=== PATIENT | male | born 1930 | race Caucasian/White ===

== ENCOUNTER 2016-09-21 18:29 | Emergency (ER) | payer MEDICARE, MEDICAID ==
[~2016-09-21] VITALS: Ht 167.6 cm; Wt 49.9 kg
[~2016-09-21 18:29] MED LIST: AMLODIPINE BESYL5 MG ORAL; ARICEPT5 MG ORAL; AUGMENTIN250 MG/51 ORAL; CARVEDILOL12.5 MG ORAL; CRANBERRY405 M1 PO; DEPAKOTE SPRIN125 M1 ORAL; DOCUSATE SODIU100 M2 ORAL; DULCOLAX10 MG RC; MOM30 ML ORAL; MULTIVITAMINS1 EA14 PO; NAMENDA5 MG ORAL; PEPCID20 MG ORAL; POLYVINYL ALCOH15 ML OP; REMERON15 M1 ORAL; TYLENOL325 MG ORAL
[2016-09-21] MEDS ORDERED: ARICEPT10 MG ORAL (18:43)
[2016-09-21] MEDS ORDERED: MULTIVITAMINS1 EAC8 ORAL (18:43)
[2016-09-21] MEDS ORDERED: REMERON15 M1 ORAL (18:43)
[2016-09-21] MEDS ORDERED: ASPIR 8181 MG ORAL (18:43)
[2016-09-21] MEDS ORDERED: BISACODYL10 M1 RC (18:43)
[2016-09-21] MEDS ORDERED: DOCUSATE SODIU100 MG ORAL (18:43)
[2016-09-21] MEDS ORDERED: COREG12.5 MG ORAL (18:43)
[2016-09-21] MEDS ORDERED: MILK OF MA400 MG/51 ORAL (18:43)
[2016-09-21] MEDS ORDERED: FOLIC ACID1 MG ORAL (18:43)
[2016-09-21 19:12] VITALS: BP 124/72
--- NOTE | 2016-09-21 19:42 | Emergency Room Report ---
History of Present Illness General Chief Complaint: Head Injury Source: Medical Record Present Illness HPI 86 y/o male BIB ambulance c/o head injury x 2 hours ago. States he was getting out of bed and hit his head on the bedside table. States he has cut to the back of his head and is on ASA and had local pain from hitting his head. No other symptoms or complaints. Denies any current n/v/f/c/d, abd pain, back pain, neck pain, photophobia, phonophobia, CP, SOB or headache. Allergies: Coded Allergies: No Known Allergies (Verified , 05/23/08) Patient History Past Medical History: see triage record Reviewed Nursing Documentation: PMH: Agreed, PSxH: Agreed Nursing Documentation-PMH Hx Hypertension: Yes Hx COPD: Yes Hx Cancer: No Hx Gastrointestinal Problems: Yes Hx Neurological Problems: Yes - DEMENTIA Hx Dementia: Yes Review of Systems All Other Systems: negative except mentioned in HPI Physical Exam Vital Signs Date Time Temp Pulse Resp B/P Pulse Ox O2 Delivery O2 Flow Rate FiO2 09/21/16 18:32 97.5 74 18 124/72 98 Room Air Sp02 EP Interpretation: reviewed, normal General Appearance: no apparent distress, alert, GCS 15, non-toxic Head: normocephalic, atraumatic Eyes: bilateral eye PERRL, bilateral eye normal inspection ENT: hearing grossly normal, normal pharynx, no angioedema, normal voice Neck: full range of motion, no bony tend, supple/symm/no masses Respiratory: chest non-tender, lungs clear, normal breath sounds Cardiovascular #1: regular rate, rhythm, no edema Musculoskeletal: back normal, gait/station normal, normal range of motion, non- tender Neurologic: alert, responsive, campus interviews intern III-XII nml as tested, motor strength/tone normal, sensory intact Skin: normal color, no rash, warm/dry, well hydrated, abrasions - posterior scalp Medical Decision Making PA Attestation Dr. Rivera is my supervising physician with whom patient management has been discussed with. Diagnostic Impression: Primary Impression: Acute head injury Qualified Codes: S09.90XA - Unspecified injury of head, initial encounter Additional Impression: Abrasion of head Qualified Codes: S00.91XA - Abrasion of unspecified part of head, initial encounter ER Course Pt. presents to the ED c/o head injury Ddx considered but are not limited to CVA, intracranial hemorrhage, concussion, skull fracture, spinal fracture Vital signs: are WNL, pt. is afebrile H&PE are most consistent with head injury ORDERS: CT Head w/o contrast ED INTERVENTIONS: none required at this time. DISCHARGE: At this time pt. is stable for d/c to home. Will provide printed patient care instructions, and any necessary prescriptions. Care plan and follow up instructions have been discussed with the patient prior to discharge. CT/MRI/US Diagnostic Results CT/MRI/US Diagnostic Results : Imaging Test Ordered: CT head w/o contrast Impression No ICH, mass effect or edema. No evidence of acute cortical stroke. Periventricular small vessel ischemic change. Global volume loss. Visualized sinuses and mastoid air cells are clear. No skull fracture. Last Vital Signs Date Time Temp Pulse Resp B/P Pulse Ox O2 Delivery O2 Flow Rate FiO2 09/21/16 18:32 97.5 74 18 124/72 98 Room Air Disposition: ASSISTED LIVING Condition: Stable Referrals: NON PHYSICIAN (PCP) Patient Instructions: HEAD INJURY with [facility] (Adult) DENISE PARKS Sep 21, 2016 19:42
[2016-09-21 20:37] VITALS: BP 146/84
[2016-09-21 21:20] VITALS: BP 134/89
[2016-09-21 21:39] VITALS: BP 146/84
--- NOTE | 2016-09-23 08:52 | Diagnostic Imaging Report ---
Indication: Headache Technique: Contiguous 5 mm thick transaxial imaging of the head obtained in a Siemens Sensation [address] scanner. Soft tissue and bone windows generated. Total Dose length Product (DLP): [address] Dose Index Volume (CTDIvol): 70.38 mGy Comparison: 11/04/13 Findings: There is moderate prominence of the ventricles, basal cisterns, and cerebral sulci consistent with atrophy. Moderate, nonspecific, white matter hypoattenuation is noted throughout the brain consistent with chronic small vessel disease. There is no midline shift, edema, acute hemorrhage, mass effect, or abnormal extra-axial fluid collections. Bones and extra osseous soft tissues are unremarkable. Impression: No acute intracranial bleed, mass effect or edema. Moderate atrophy of the brain. Evidence of chronic small vessel disease involving white matter tracts. [facility] has communicated the preliminary results to the Emergency Department. Their findings are largely concordant with this report. The CT scanner at [facility] is accredited by the [employer] and the scans are performed using dose optimization techniques as appropriate to a performed exam including Automatic Exposure control.
== END 2016-09-21 21:40 | disposition home or self-care (01) ==
LOC: EDBD 18:29 → EDUNIT# 18:29 → EMR 19:12
DX: S09.90XA Unspecified injury of head, initial encounter (principal); S00.91XA Abrasion of unspecified part of head, initial encounter; I10 Essential (primary) hypertension; J44.9 Chronic obstructive pulmonary disease, unspecified; F03.90 Unspecified dementia, unspecified severity, without behavioral disturbance, psychotic disturbance, mood disturbance, and anxiety; W22.8XXA Striking against or struck by other objects, initial encounter; Y93.9 Activity, unspecified; Y92.9 Unspecified place or not applicable
CPT/HCPCS: 70450; 99283

== ENCOUNTER 2016-11-26 12:47 | Inpatient (IN) | payer MEDICARE, MEDICAID ==
[~2016-11-26] VITALS: Ht 167.6 cm; Wt 59.0 kg
[~2016-11-26 12:47] MED LIST changes: +ARICEPT10 MG ORAL; +ASPIR 8181 MG ORAL; +BISACODYL10 M1 RC; +COREG12.5 MG ORAL; +DOCUSATE SODIU100 MG ORAL; +FOLIC ACID1 MG ORAL; +MILK OF MA400 MG/51 ORAL; +MULTIVITAMINS1 EAC8 ORAL
[2016-11-26 13:34] VITALS: BP 160/80
[2016-11-26 13:35] VITALS: BP 219/87
[2016-11-26 13:47] LABS: BASOPHILS % (AUTO) 0.3 % (0.0-2.0); LYMPHOCYTES % (AUTO) 20.4 % (20.0-45.0); MEAN CORPUSCULAR HEMOGLOBIN 29.1 PG (27.0-31.0); MEAN CORPUSCULAR HGB CONC 30.6 G/DL (32.0-36.0); MEAN CORPUSCULAR VOLUME 95 FL (80-99); MEAN PLATELET VOLUME 7.4 FL (6.5-10.1); MONOCYTES % (AUTO) 6.1 % (1.0-10.0); NEUTROPHILS % (AUTO) 69.2 % (45.0-75.0); PLATELET COUNT 170 K/UL (150-450); RED BLOOD COUNT 4.09 M/UL (4.70-6.10); RED CELL DISTRIBUTION WIDTH 13.6 % (11.6-14.8); WHITE BLOOD COUNT 8.3 K/UL (4.8-10.8)
[2016-11-26 13:59] LABS: ALANINE AMINOTRANSFERASE 19 U/L (3-41); ALBUMIN/GLOBULIN RATIO 0.6 (1.0-2.7); ASPARTATE AMINO TRANSFERASE 27 U/L (5-40); CALCIUM 9.1 mg/dL (8.6-10.2); CARBON DIOXIDE 28 mEQ/L (20-30); CHLORIDE 124 mEQ/L (98-107); CREATININE 1.9 mg/dL (0.7-1.2); HEMOLYSIS 6; POTASSIUM 4.1 mEQ/L (3.4-4.9); TOTAL PROTEIN 7.7 g/dL (6.6-8.7)
[2016-11-26 14:05] LABS: ANION GAP 8 (5-15); SODIUM 160 mEQ/L (135-145)
--- NOTE | 2016-11-26 14:18 | Emergency Room Report ---
History of Present Illness General Chief Complaint: Abnormal Labs Source: Medical Record, EMS Present Illness HPI This [facility] from [facility] facility. Apparently he was undergoing routine lab work and found to have abnormal labs. This included an elevated BUN and creatinine and an elevated sodium. Patient has a history of failure to thrive, dementia depression. Apparently he also has had poor oral intake the past few days despite encouragement. Allergies: Coded Allergies: No Known Allergies (Verified , 05/23/08) Patient History Past Medical History: see triage record, old chart reviewed, GERD, dementia, other - FTT Social History: Denies: alcohol use, drug use, smoking Reviewed Nursing Documentation: PMH: Agreed, PSxH: Agreed Nursing Documentation-PMH Hx Cardiac Problems: No Hx Hypertension: Yes Hx Pacemaker: No Hx Asthma: No Hx COPD: No Hx Diabetes: No Hx Cancer: No Hx Gastrointestinal Problems: Yes - gi reflux Hx Dialysis: No History Of Psychiatric Problem: Yes - dementia Hx Neurological Problems: No Hx Dementia: Yes Hx Seizures: No Review of Systems All Other Systems: limited Physical Exam Vital Signs Date Time Temp Pulse Resp B/P Pulse Ox O2 Delivery O2 Flow Rate FiO2 11/26/16 12:50 97.9 67 16 123/54 98 Room Air Sp02 EP Interpretation: reviewed, normal General Appearance: no apparent distress, alert, GCS 15, non-toxic Head: normocephalic, atraumatic Eyes: bilateral eye PERRL, bilateral eye normal inspection ENT: hearing grossly normal, normal pharynx, no angioedema, normal voice Neck: supple/symm/no masses Respiratory: chest non-tender, lungs clear, normal breath sounds, no respiratory distress, no retraction, no accessory muscle use Cardiovascular #1: regular rate, rhythm, no edema, systolic murmur Gastrointestinal: normal bowel sounds, non tender, soft, non-distended, no guarding, no rebound Rectal: deferred Musculoskeletal: normal range of motion Neurologic: alert, responsive, other - Near baseline. Non-focal. Unable to cooperate with full exam. Skin: warm/dry, other - See RN skin exam for details of decubitus ulcers. Medical Decision Making Diagnostic Impression: Primary Impression: Hypernatremia Additional Impression: Acute renal failure ER Course This patient presents with failure to thrive. Patient is found to be hypernatremic and has acute renal failure. Likely this is related to dehydration secondary to poor oral intake. Patient was given IV hydration. The patient is admitted for further evaluation of failure to thrive. Patient is admitted to telemetry because of his hypernatremia and acute renal failure. Labs Test 11/26/16 13:30 11/26/16 14:10 White Blood Count 8.3 K/UL (4.8-10.8) Red Blood Count 4.09 M/UL (4.70-6.10) Hemoglobin 11.9 G/DL (14.2-18.0) Hematocrit 38.8 % (42.0-52.0) Mean Corpuscular Volume 95 FL (80-99) Mean Corpuscular Hemoglobin 29.1 PG (27.0-31.0) Mean Corpuscular Hemoglobin Concent 30.6 G/DL (32.0-36.0) Red Cell Distribution Width 13.6 % (11.6-14.8) Platelet Count 170 K/UL (150-450) Mean Platelet Volume 7.4 FL (6.5-10.1) Neutrophils (%) (Auto) 69.2 % (45.0-75.0) Lymphocytes (%) (Auto) 20.4 % (20.0-45.0) Monocytes (%) (Auto) 6.1 % (1.0-10.0) Eosinophils (%) (Auto) 4.0 % (0.0-3.0) Basophils (%) (Auto) 0.3 % (0.0-2.0) Sodium Level 160 mEQ/L (135-145) Potassium Level 4.1 mEQ/L (3.4-4.9) Chloride Level 124 mEQ/L (98-107) Carbon Dioxide Level 28 mEQ/L (20-30) Anion Gap 8 (5-15) Blood Urea Nitrogen 41 mg/dL (7-23) Creatinine 1.9 mg/dL (0.7-1.2) Estimat Glomerular Filtration Rate mL/min (>60) Glucose Level 89 mg/dL (74-106) Calcium Level 9.1 mg/dL (8.6-10.2) Total Bilirubin < 0.2 mg/dL (0.0-1.2) Aspartate Amino Transf (AST/SGOT) 27 U/L (5-40) Alanine Aminotransferase (ALT/SGPT) 19 U/L (3-41) Alkaline Phosphatase 76 U/L (40-129) Total Protein 7.7 g/dL (6.6-8.7) Albumin 3.0 g/dL (3.5-5.2) Globulin 4.7 g/dL Albumin/Globulin Ratio 0.6 (1.0-2.7) Urine Color Pale yellow Urine Appearance Slightly cloudy Urine pH 5 (4.5-8.0) Urine Specific Hallie 1.020 (1.005-1.035) Urine Protein 1+ (NEGATIVE) Urine Glucose (UA) Negative (NEGATIVE) Urine Ketones Negative (NEGATIVE) Urine Occult Blood 5+ (NEGATIVE) Urine Nitrite Negative (NEGATIVE) Urine Bilirubin Negative (NEGATIVE) Urine Urobilinogen Normal MG/DL (0.0-1.0) Urine Leukocyte Esterase 1+ (NEGATIVE) EKG Diagnostic Results Rate: normal Rhythm: NSR ST Segments: no acute changes Rhythm Strip Diag. Results EP Interpretation: yes Rate: 60's Rhythm: NSR, other Other Impression occasional PVC's Last Vital Signs Date Time Temp Pulse Resp B/P Pulse Ox O2 Delivery O2 Flow Rate FiO2 11/26/16 13:34 98.0 82 18 160/80 98 Room Air Disposition: ADMITTED INPATIENT Condition: Serious MONO MOFFETT D.O. Nov 26, 2016 14:18
[2016-11-26 14:26] LABS: APPEARANCE,URINE SLIGHTLY CLOUDY; KETONES,URINE NEGATIVE (NEGATIVE); LEUKOCYTE ESTERASE ,URINE 1+ (NEGATIVE); NITRITE,URINE NEGATIVE (NEGATIVE); PH,URINE 5 (4.5-8.0); PROTEIN,URINE 1+ (NEGATIVE); UROBILINOGEN,URINE NORMAL MG/DL (0.0-1.0)
[2016-11-26 14:51] LABS: BACTERIA,URINE FEW /HPF; MUCUS,URINE OCCASIONAL /LPF (NONE/OCC); SQUAMOUS EPITHELIAL CELL,UR OCCASIONAL /LPF (NONE/OCC)
[2016-11-26] MEDS ORDERED: CEPHALEXIN500 MG ORAL (15:03)
[2016-11-26] MEDS ORDERED: DOXYCYCLINE MO100 MG ORAL (15:03)
[2016-11-26] MEDS ORDERED: ZANTAC150 MG ORAL (15:03)
[2016-11-26] MEDS ORDERED: ACETAMINOPHEN325 M1 ORAL (15:03)
[2016-11-26] MEDS ORDERED: BISACODYL10 M1 RC (18:14)
[2016-11-26] MEDS ORDERED: MILK OF MA400 MG/51 ORAL (18:16)
[2016-11-26 18:42] VITALS: BP 161/91
[2016-11-26] MEDS ORDERED: Fleet's Enema 133ml RECTAL ONE (19:00)
[2016-11-26 20:03] VITALS: BP 165/84
[2016-11-26] MEDS ORDERED: Famotidine 20 MG/ 2ML VIAL IVP SCH (21:00)
--- NOTE | 2016-11-26 21:30 | History and Physical Report ---
DATE OF ADMISSION: 11/26/2016 REASON FOR ADMISSION: Dehydration, hyponatremia, and failure to thrive. HISTORY OF PRESENT ILLNESS: The patient is a long-term patient of mine for more than 15 years, who has been living in a nursing home facility. He has advanced dementia likely underlying schizophrenia or psychosis and has had multiple psychiatric hospitalizations in the past. Recently, he was started on empiric treatment for cellulitis. 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 In the past, he has had dysphagia, but he has tolerated a diet. There is a history of chronic obstructive pulmonary disease. MEDICATIONS: Aricept 10 mg at bedtime, aspirin 81 mg daily, Coreg 12.5 mg b.i.d., DSS 100 mg b.i.d., Dulcolax suppository p.r.n., folic acid 1 mg daily, milk of magnesia p.r.n., multivitamin with minerals 1 daily, Namenda 5 mg b.i.d., Remeron 7.5 mg at bedtime, Tylenol p.r.n., Zantac 300 mg daily, doxycycline 100 mg b.i.d. starting 11/19/2016, and Keflex 500 mg q.i.d., starting 11/19/2016 for cellulitis. SYSTEM REVIEW: The patient is unable. SURGERIES: For ectropion of the eyes. HABITS: He is a smoker quit many years ago. No known drug or alcohol abuse. SOCIAL HISTORY: I do not believe he has any close family contact. PHYSICAL EXAMINATION: GENERAL: The patient is lying in bed, confused, and alert. VITAL SIGNS: Temperature 98.1 degrees, pulse 71, respirations 18, and blood pressure 219/87, and pulse oximetry 98%. Repeat blood pressure 166/78. HEAD, EYES, EARS, NOSE, AND THROAT: Bilateral ectropion. He is edentulous. Oral mucosa is dry. NECK: No adenopathy or thyroid enlargement. LUNGS: Clear. HEART: Rhythm is regular. I hear no murmur. There are occasional ectopic beats. ABDOMEN: Soft. I am unable to feel liver or spleen. RECTAL: Deferred. EXTREMITIES: Show contractures of the knees and degenerative changes muscle atrophy. NEUROLOGIC: He is alert and responsive, but confused and disoriented. Ocular motions appear to be intact in all directions. There is no facial asymmetry. He moves all extremities. There is generalized weakness. He is confused and disoriented. SKIN: There is a sore on the right hip. I do not see any cellulitis at this time, but the nurses are checking carefully for any other skin lesions and this will be readdressed. PERTINENT LABORATORY DATA: Show a white count of 8.3, and hemoglobin 11.9. Sodium 160, potassium 4.1, chloride 124, CO2 20, BUN 41, and creatinine 1.9. Albumin is 3. Urinalysis was done showing 2 to 4 white cells, and 10 to 15 red cells per high power field. Imaging is pending. IMPRESSION: 1. Dehydration. 2. Hypernatremia secondary to dehydration. 3. Recent cellulitis. 4. Anorexia. 5. Failure to thrive. 6. Recent cellulitis. 7. History of gastritis and prior gastrointestinal bleeding. 8. History of underlying coronary disease. 9. History of chronic obstructive pulmonary disease. 10. History of advanced dementia. 11. History of psychosis. PLAN: The patient will be hydrated and supportive care. We will try to see if there is a DPOA to make decisions for him. In my experience with chronic downhill course, may benefit from palliative care, but we will try to get the appropriate confirmation by [employer]. Khanh Haji M.D. DR: JULI JOB#: [id number] CC:
[2016-11-26] MEDS: Heparin 5000 units/ml inj SUBQ SCH (21:59)
[2016-11-27] VITALS: BP 165/92
[2016-11-27 04:03] VITALS: BP 166/96
[2016-11-27] MEDS: Heparin 5000 units/ml inj SUBQ SCH ×2 (09:00→20:47)
[2016-11-27 09:06] LABS: BASOPHILS % (AUTO) 0.5 % (0.0-2.0); EOSINOPHILS % (AUTO) 4.1 % (0.0-3.0); LYMPHOCYTES % (AUTO) 18.9 % (20.0-45.0); MEAN CORPUSCULAR HEMOGLOBIN 28.8 PG (27.0-31.0); MEAN CORPUSCULAR HGB CONC 30.6 G/DL (32.0-36.0); MEAN CORPUSCULAR VOLUME 94 FL (80-99); MEAN PLATELET VOLUME 8.2 FL (6.5-10.1); MONOCYTES % (AUTO) 5.7 % (1.0-10.0); NEUTROPHILS % (AUTO) 70.7 % (45.0-75.0); PLATELET COUNT 145 K/UL (150-450); RED BLOOD COUNT 3.89 M/UL (4.70-6.10); RED CELL DISTRIBUTION WIDTH 13.2 % (11.6-14.8); WHITE BLOOD COUNT 7.3 K/UL (4.8-10.8)
[2016-11-27 09:18] LABS: ALANINE AMINOTRANSFERASE 15 U/L (3-41); ALBUMIN/GLOBULIN RATIO 0.6 (1.0-2.7); ANION GAP 10 (5-15); ASPARTATE AMINO TRANSFERASE 21 U/L (5-40); CALCIUM 8.2 mg/dL (8.6-10.2); CARBON DIOXIDE 25 mEQ/L (20-30); CHLORIDE 120 mEQ/L (98-107); CREATININE 1.4 mg/dL (0.7-1.2); HEMOLYSIS 4; POTASSIUM 3.5 mEQ/L (3.4-4.9); SODIUM 155 mEQ/L (135-145); TOTAL PROTEIN 6.8 g/dL (6.6-8.7)
[2016-11-27 11:00] VITALS: BP 179/85
[2016-11-27 12:00] VITALS: BP 176/88
--- NOTE | 2016-11-27 13:33 | Wound Care Consultation ---
Wound Assessment Wound Assessment #1: Wound Number: #1 Wound Present on Admission: Yes New Wound: No Status Change of Wound: No Wound Location Body Site Modif: left Wound Location Body Site: other - garzon Wound Type: other - open non pressure ulcer.-etiology unknown. Mar Test: Does not Mar Wound Thickness: Full Thickness Wound Length: 1.0 Wound Width: 1.0 Wound Depth: 0.3 Percent of Wound Killian/Red: 95 Percent of Wound Bed Yellow/Wh: 5 Wound Drainage Description: Serosanguineous Wound Drainage Amount: Moderate Wound Drainage Odor: None/Absent Tissue Surrounding Wound: Erythemic Wound General Appearance: Reddened, Draining, Necrotic - scattered 5% Wound Assessment #2: Wound Number: #2 Wound Present on Admission: Yes New Wound: No Status Change of Wound: No Wound Location Body Site Modif: right Wound Location Body Site: trochanter Wound Type: pressure ulcer Mar Test: Does not Mar Pressure Ulcer Stage: IV/unstageable - unstageable. Wound Thickness: Full Thickness Wound Length: 4.0 Wound Width: 4.0 Wound Depth: utd Percent of Wound Bed Yellow/Wh: 20 Percent of Wound Black/Brown: 80 Wound Drainage Description: Serosanguineous Wound Drainage Amount: Moderate Wound Drainage Odor: None/Absent Tissue Surrounding Wound: Erythemic Wound General Appearance: Reddened, Draining, Necrotic Wound Assessment #3: Wound Number: #3 Wound Present on Admission: Yes New Wound: No Status Change of Wound: No Wound Location Body Site Modif: left, posterior Wound Location Body Site: other - Achilles Tendon. Wound Type: pressure ulcer Mar Test: Does not Mar Pressure Ulcer Stage: deep tissue injury Wound Thickness: Full Thickness Wound Length: 2.0 - scattered Wound Width: 1.5 - scattered Wound Depth: utd Percent of Wound Purple/Maroon: 100 Wound Drainage Amount: None Wound Drainage Odor: None/Absent Tissue Surrounding Wound: Erythemic Wound General Appearance: Reddened - maroon Wound Assessment #4: Wound Number: #2 Wound Present on Admission: Yes New Wound: No Status Change of Wound: No Wound Location Body Site: sacral Wound Type: pressure ulcer Mar Test: Does not Mar Pressure Ulcer Stage: II - scattered Wound Thickness: Partial Thickness Wound Length: 6.0 - scattered stage 2 Wound Width: 10.0 - Scattered stage 2 Wound Depth: 0.1 Percent of Wound Killian/Red: 100 Wound Drainage Description: Serosanguineous Wound Drainage Amount: Scant Wound Drainage Odor: None/Absent Tissue Surrounding Wound: Erythemic Wound General Appearance: Reddened Wound Comment #1 Left garzon open ulcer.- etiology unknown. #2 Right trochanter Unstageable pressure ulcer. #3 Left posterior Achilles tendon Deep tissue injury #4 Sacral pressure ulcer scattered stage 2. RECOMMENDATION. -Local wound care as ordered. -Apply SPR low air loss mattress for wound and skin management. -Turn and reposition. -Keep clean and dry. -Optimize nutrition. -Offload affected sacral site, right trochanter, left achilles tendon. -Avoid shear, friction or pressure to left garzon ulcer. -Offload heels and feel for skin management , prevention. -Heel protectors. -Avoid shear and friction. -Assess and notify MD for any further changes of condition to skin noted. SOL ROBB Nov 27, 2016 13:33
--- NOTE | 2016-11-27 14:26 | General Progress Note ---
Assessment/Plan Problem List: (1) Dehydration ICD Codes: E86.0 - Dehydration SNOMED: 69844452 (2) Dysphagia ICD Codes: R13.10 - Dysphagia SNOMED: 68084765 (3) Hypernatremia ICD Codes: E87.0 - Hyperosmolality and hypernatremia SNOMED: 31671928 (4) Acute renal failure ICD Codes: N17.9 - Acute kidney failure, unspecified SNOMED: 81506023 (5) Gastritis ICD Codes: K29.70 - Gastritis, unspecified, without bleeding SNOMED: 0160110 (6) Alzheimer disease ICD Codes: G30.9 - Alzheimer's disease, unspecified SNOMED: 73186556 Assessment/Plan ST eval and starting puree, iv hydration, resume po meds Subjective ROS Limited/Unobtainable: Yes Allergies: Coded Allergies: No Known Allergies (Verified , 05/23/08) Objective Last 24 Hour Vital Signs Date Time Temp Pulse Resp B/P Pulse Ox O2 Delivery O2 Flow Rate FiO2 11/27/16 11:00 97.1 17 179/85 98 Room Air 11/27/16 08:00 57 11/27/16 04:03 97.0 77 16 166/96 95 Room Air 11/27/16 04:00 61 11/27/16 00:00 97.3 78 16 165/92 95 Room Air 11/27/16 00:00 60 11/26/16 21:58 165/84 11/26/16 20:03 97.0 67 16 165/84 95 Room Air 11/26/16 18:42 97.0 71 18 161/91 95 Room Air 11/26/16 17:55 71 20 166/78 98 Room Air 11/26/16 16:05 187/90 Intake and Output 11/26/16 11/27/16 19:00 07:00 Intake Total 2000 ml 1650 ml Output Total 60 ml Balance 1940 ml 1650 ml Intake IV Total 2000 ml 1650 ml Output Urine Total 60 ml # Voids 1 # Bowel Movements 2 Laboratory Tests 11/26/16 21:30: Stool Occult Blood Negative 11/27/16 08:40: White Blood Count 7.3, Red Blood Count 3.89L, Hemoglobin 11.2L, Hematocrit 36.7L , Mean Corpuscular Volume 94, Mean Corpuscular Hemoglobin 28.8, Mean Corpuscular Hemoglobin Concent 30.6L, Red Cell Distribution Width 13.2, Platelet Count 145L, Mean Platelet Volume 8.2, Neutrophils (%) (Auto) 70.7, Lymphocytes (%) (Auto) 18.9L, Monocytes (%) (Auto) 5.7, Eosinophils (%) (Auto) 4.1H, Basophils (%) (Auto) 0.5, Sodium Level 155H, Potassium Level 3.5, Chloride Level 120H, Carbon Dioxide Level 25, Anion Gap 10, Blood Urea Nitrogen 28H, Creatinine 1.4H, Estimat Glomerular Filtration Rate , Glucose Level 91, Calcium Level 8.2L, Total Bilirubin 0.2, Aspartate Amino Transf (AST/SGOT) 21, Alanine Aminotransferase (ALT/SGPT) 15, Alkaline Phosphatase 78, Total Protein 6.8, Albumin 2.7L, Globulin 4.1, Albumin/Globulin Ratio 0.6L, Thyroid Stimulating Hormone (TSH) 2.600 Height (Feet): 5 Height (Inches): 6.00 Weight (Pounds): 130 General Appearance: no apparent distress, confused EENT: normal ENT inspection, other - dry mouth Neck: normal alignment Cardiovascular: normal rate, regular rhythm Respiratory/Chest: lungs clear, normal breath sounds Abdomen: non tender, soft Extremities: no calf tenderness Neurologic: disoriented Skin: other - KATERINA Ann Nov 27, 2016 14:26
[2016-11-27] MEDS ORDERED: Donepezil 10mg tab ORAL SCH (14:30)
[2016-11-27] MEDS ORDERED: Milk of Magnesia 30ml Ud ORAL PRN ×2 (14:30→22:00)
[2016-11-27 16:00] VITALS: BP 183/85
[2016-11-27] MEDS ORDERED: Memantine 5 MG TAB ORAL SCH (18:00)
[2016-11-27] MEDS ORDERED: Docusate 100mg cap ORAL SCH (18:00)
[2016-11-27 20:00] VITALS: BP 138/57
[2016-11-27] MEDS ORDERED: Carvedilol 12.5mg tab ORAL SCH (21:00)
[2016-11-27] MEDS ORDERED: 1/2 NS 1000ml IV ONE (21:44)
[2016-11-28] VITALS (7 sets, daily range): BP systolic 143–165; BP diastolic 67–96
[2016-11-28 06:45] LABS: BASOPHILS % (AUTO) 0.5 % (0.0-2.0); EOSINOPHILS % (AUTO) 3.9 % (0.0-3.0); LYMPHOCYTES % (AUTO) 18.6 % (20.0-45.0); MEAN CORPUSCULAR HEMOGLOBIN 28.8 PG (27.0-31.0); MEAN CORPUSCULAR HGB CONC 31.2 G/DL (32.0-36.0); MEAN CORPUSCULAR VOLUME 92 FL (80-99); MEAN PLATELET VOLUME 8.9 FL (6.5-10.1); NEUTROPHILS % (AUTO) 70.1 % (45.0-75.0); PLATELET COUNT 154 K/UL (150-450); RED BLOOD COUNT 3.93 M/UL (4.70-6.10); RED CELL DISTRIBUTION WIDTH 13.1 % (11.6-14.8); WHITE BLOOD COUNT 9.1 K/UL (4.8-10.8)
[2016-11-28 07:19] LABS: ANION GAP 10 (5-15); CALCIUM 8.2 mg/dL (8.6-10.2); CARBON DIOXIDE 24 mEQ/L (20-30); CHLORIDE 113 mEQ/L (98-107); CREATININE 1.4 mg/dL (0.7-1.2); HEMOLYSIS 4; POTASSIUM 3.7 mEQ/L (3.4-4.9); SODIUM 147 mEQ/L (135-145)
[2016-11-28] MEDS ORDERED: Multivitamin w/Minerals tab ORAL SCH (09:00)
[2016-11-28] MEDS ORDERED: Aspirin EC 81mg tab ORAL SCH (09:00)
[2016-11-28] MEDS: Heparin 5000 units/ml inj SUBQ SCH ×2 (09:35→21:55)
[2016-11-28] MEDS: Carvedilol 12.5mg tab ORAL SCH ×2 (09:36→21:48)
[2016-11-28] MEDS: Donepezil 10mg tab ORAL SCH (09:36)
[2016-11-28] MEDS: Memantine 5 MG TAB ORAL SCH ×2 (09:37→18:38)
[2016-11-28] MEDS: Aspirin EC 81mg tab ORAL SCH (09:37)
[2016-11-28] MEDS: Multivitamin w/Minerals tab ORAL SCH (09:38)
[2016-11-28] MEDS: Docusate 100mg cap ORAL SCH ×2 (09:38→18:38)
[2016-11-28] MEDS ORDERED: Pantoprazole Inj IVP SCH (10:15)
[2016-11-28] MEDS ORDERED: Tubing IV Secondary IV ONE (16:06)
[2016-11-28] MEDS ORDERED: 1/2 NS 1000ml IV ONE ×2 (16:06→16:55)
--- NOTE | 2016-11-28 20:15 | Consultation ---
DATE OF CONSULTATION: 11/28/2016 HISTORY OF PRESENT ILLNESS: This is an 86-year-old male with a history of advanced dementia and schizophrenia, who has been admitted to the hospital and due to dehydration, hypernatremia and failure to thrive. Psychiatry was consulted as the patient became agitated this morning. During the evaluation, the patient is unable to provide any history due to cognitive impairment. PAST PSYCHIATRIC HISTORY: He has a history of schizophrenia has been treated with Remeron, Namenda and Aricept in the past. PAST MEDICAL HISTORY: Significant for pneumonia, anemia, urinary tract infection, dehydration, hypernatremia, gastritis, chronic obstructive airway disease and asthma. ALLERGIES: There is no known allergies. SUBSTANCE ABUSE HISTORY: There is no known history of illicit drug use or alcohol. MENTAL STATUS EXAMINATION: The patient is confused and disoriented. Mood is neutral during the evaluation. Affect was flat. Congruent with mood. Thought process is concrete. Thought content, there is no suicidal or homicidal ideation. ASSESSMENT: AXIS I Dementia and schizophrenia by history. AXIS II Deferred. AXIS III As above. AXIS IV Moderate. AXIS V 20. PLAN: 1. We will start the patient on Remeron 7.5 mg at bedtime. 2. We will continue to follow and readjust the medications. Candace Leblanc M.D. DR: BENJA JOB#: [id number] CC:
--- NOTE | 2016-11-28 21:05 | General Progress Note ---
Assessment/Plan Problem List: (1) Dehydration ICD Codes: E86.0 - Dehydration SNOMED: 09177727 (2) Dysphagia ICD Codes: R13.10 - Dysphagia SNOMED: 15452001 (3) Hypernatremia ICD Codes: E87.0 - Hyperosmolality and hypernatremia SNOMED: 19601808 (4) Acute renal failure ICD Codes: N17.9 - Acute kidney failure, unspecified SNOMED: 12472749 (5) Gastritis ICD Codes: K29.70 - Gastritis, unspecified, without bleeding SNOMED: 4043229 (6) Alzheimer disease ICD Codes: G30.9 - Alzheimer's disease, unspecified SNOMED: 12119584 (7) Decubitus skin ulcer ICD Codes: L89.90 - Pressure ulcer of unspecified site, unspecified stage SNOMED: 218585417 Assessment/Plan ST eval and starting puree, iv hydration, resume po meds Subjective ROS Limited/Unobtainable: Yes Allergies: Coded Allergies: No Known Allergies (Verified , 05/23/08) Objective Last 24 Hour Vital Signs Date Time Temp Pulse Resp B/P Pulse Ox O2 Delivery O2 Flow Rate FiO2 11/28/16 16:31 96.6 62 18 149/67 99 Room Air 11/28/16 11:58 96.8 52 18 143/70 97 Room Air 11/28/16 09:36 71 165/87 11/28/16 07:27 98.4 71 20 165/87 95 Room Air 11/28/16 04:32 71 155/88 11/28/16 04:00 97.5 73 18 163/91 97 Room Air 11/28/16 00:00 97.5 72 20 165/96 98 Room Air Intake and Output 11/27/16 11/28/16 19:00 07:00 Intake Total 300 ml 900 ml Balance 300 ml 900 ml Intake Oral 100 ml IV Total 300 ml 800 ml # Voids 2 3 Laboratory Tests 11/28/16 04:55: White Blood Count 9.1, Red Blood Count 3.93L, Hemoglobin 11.3L, Hematocrit 36.3L , Mean Corpuscular Volume 92, Mean Corpuscular Hemoglobin 28.8, Mean Corpuscular Hemoglobin Concent 31.2L, Red Cell Distribution Width 13.1, Platelet Count 154, Mean Platelet Volume 8.9, Neutrophils (%) (Auto) 70.1, Lymphocytes (%) (Auto) 18.6L, Monocytes (%) (Auto) 7.0, Eosinophils (%) (Auto) 3.9H, Basophils (%) (Auto) 0.5, Sodium Level 147H, Potassium Level 3.7, Chloride Level 113H, Carbon Dioxide Level 24, Anion Gap 10, Blood Urea Nitrogen 24H, Creatinine 1.4H, Estimat Glomerular Filtration Rate , Glucose Level 86, Calcium Level 8.2L Height (Feet): 5 Height (Inches): 6.00 Weight (Pounds): 130 General Appearance: no apparent distress, alert, confused EENT: other - ectropions Neck: non-tender Cardiovascular: normal rate, regular rhythm Respiratory/Chest: lungs clear Abdomen: soft, no organomegaly Edema: no edema noted Arm (L), no edema noted Arm (R), no edema noted Leg (L), no edema noted Leg (R), no edema noted Pedal (L), no edema noted Pedal (R), no edema noted Generalized Neurologic: motor weakness, disoriented Skin: other - r hip decubitus KATERINA JIMENEZ Nov 28, 2016 21:05
[2016-11-29 00:07] VITALS: BP 146/64
[2016-11-29 03:29] VITALS: BP 120/50
[2016-11-29 08:25] VITALS: BP 157/83
[2016-11-29] MEDS: Docusate 100mg cap ORAL SCH ×2 (08:57→17:35)
[2016-11-29] MEDS: Donepezil 10mg tab ORAL SCH (08:57)
[2016-11-29] MEDS: Aspirin EC 81mg tab ORAL SCH (08:57)
[2016-11-29] MEDS: Multivitamin w/Minerals tab ORAL SCH (08:57)
[2016-11-29] MEDS: Carvedilol 12.5mg tab ORAL SCH (08:58)
[2016-11-29] MEDS: Memantine 5 MG TAB ORAL SCH ×2 (08:58→17:35)
[2016-11-29] MEDS: Heparin 5000 units/ml inj SUBQ SCH (08:59)
[2016-11-29] MEDS ORDERED: 1/2 NS 1000ml IV ONE (09:08)
[2016-11-29 11:39] VITALS: BP 150/85
[2016-11-29 16:00] VITALS: BP 150/76
--- NOTE | 2016-11-30 02:45 | Progress Note ---
DATE: 11/29/2016 SUBJECTIVE: The patient continues to be easily agitated and anxious and attempts to come out of bed. He is on one-to-one. today than previous encounter. Today, the patient is calm. No behavioral issues. No agitation. Compliant with medications. MENTAL STATUS EXAMINATION: The patient is alert and oriented times self. Mood is neutral. Affect is flat. Thought process, there is a paucity of thought content. The patient is confused, disoriented, and was unable to provide any history. Cognition is impaired. ASSESSMENT: 1. Failure to thrive. 2. Dementia. 3. Psychotic disorder. PLAN: The patient will be continued on current medication. Candace Leblanc M.D. DR: REINALDO JOB#: [id number] CC:
--- NOTE | 2016-11-30 04:32 | Discharge Summary ---
DATE OF ADMISSION: 11/26/2016 DATE OF DISCHARGE: 11/29/2016 PERTINENT HISTORY: The patient presents with dehydration and hypernatremia. He has longstanding dementia, likely schizophrenia and Alzheimer disease, but recently decreased oral intake. PERTINENT PHYSICAL FINDINGS: HEENT: Oral mucosa dry. LUNGS: Clear. HEART: Regular rhythm. ABDOMEN: Soft. No organomegaly. EXTREMITIES: Contractures in the knees. SKIN: Sore on the right hip and other small sores. COURSE IN THE HOSPITAL: The patient had sodium of 160, BUN 41, and creatinine 1.9 on admission and improved gradually with hypotonic IV fluids. There are no fever or chills. This is serious infection, received wound care. He was seen by speech therapy who approved a pureed diet and he was able to subsequently tolerate diet. On the day of discharge, he did take his diet. His vital signs were stable. Lungs clear. Heart regular rhythm. Abdomen was soft. He was alert, but confused, but back to his baseline. He was discharged back to the ECF. FINAL DIAGNOSES: 1. Severe dehydration. 2. Hyponatremia. 3. Moderate protein-calorie malnutrition. 4. Anorexia. 5. Recent cellulitis. 6. Decubitus ulcer, right hip present on admission. 7. History of gastritis and prior gastrointestinal bleeding. 8. History of coronary artery disease. 9. History of schizophrenia. 10. History of chronic obstructive pulmonary disease. DISCHARGE DISPOSITION: Back to the ECF on pureed diet. DISCHARGE MEDICATIONS: Per the discharge medication list. FOLLOWUP: Follow up with Dr. Haji in the facility. Khanh Haji M.D. DR: CHASITY JOB#: [id number] CC:
== END 2016-11-29 18:50 | DRG 641 ==
LOC: EDBD 12:47 → EMR 13:40 → 2E 14:53 → EDBEDREQ 18:01 → 2E 18:43 → 4W 11-27 21:51
DX: E86.0 Dehydration (principal); N17.9 Acute kidney failure, unspecified; E44.0 Moderate protein-calorie malnutrition; E87.0 Hyperosmolality and hypernatremia; L89.210 Pressure ulcer of right hip, unstageable; L89.152 Pressure ulcer of sacral region, stage 2; J44.9 Chronic obstructive pulmonary disease, unspecified; G30.9 Alzheimer's disease, unspecified; F02.80 Dementia in other diseases classified elsewhere, unspecified severity, without behavioral disturbance, psychotic disturbance, mood disturbance, and anxiety; Z68.1 Body mass index [BMI] 19.9 or less, adult; R62.7 Adult failure to thrive; F20.9 Schizophrenia, unspecified; R63.0 Anorexia; I25.10 Atherosclerotic heart disease of native coronary artery without angina pectoris; K29.70 Gastritis, unspecified, without bleeding; R13.10 Dysphagia, unspecified
CPT/HCPCS: 36415; 71010; 80048; 80053; 81003; 82270; 84443; 85025; 87081; 93005

== ENCOUNTER 2017-12-08 15:20 | Inpatient (IN) | payer MEDICARE, MEDICAID ==
[~2017-12-08] VITALS: Ht 167.6 cm; Wt 62.6 kg
[~2017-12-08 15:20] MED LIST changes: +ACETAMINOPHEN325 M1 ORAL; +CEPHALEXIN500 MG ORAL; +DOXYCYCLINE MO100 MG ORAL; +ZANTAC150 MG ORAL
[2017-12-08 15:30] VITALS: BP 122/69
[2017-12-08] MEDS ORDERED: Cefepime HCl 1 GM in NS 55 ML IV SCH (15:30)
--- NOTE | 2017-12-08 15:31 | Emergency Room Report ---
History of Present Illness General Chief Complaint: General Complaint Source: Patient, Medical Record Present Illness HPI Patient is 87-year-old male sent in by nursing facility after increased generalized weakness and failure to thrive. The patient noted have elevated white blood count. He had recently had been having decreased oral intake. The patient noted have a baseline history of dementia. He was noted to have a chronic indwelling Mendez catheter.Patient was noted to have decreased oral intake. Patient's POLST showed patient to be full code. Allergies: Coded Allergies: No Known Allergies (Verified , 05/23/08) Patient History Past Medical History: see triage record Reviewed Nursing Documentation: PMH: Agreed; PSxH: Agreed Nursing Documentation-PMH Past Medical History: No History, Except For Hx Cardiac Problems: Yes Hx Hypertension: Yes Hx Pacemaker: No Hx Asthma: No Hx COPD: No Hx Diabetes: No Hx Cancer: No Hx Gastrointestinal Problems: Yes Hx Dialysis: No Hx Neurological Problems: No Hx Cerebrovascular Accident: Yes Hx Dementia: Yes Hx Seizures: No Hx Dysphasia: Yes Review of Systems All Other Systems: limited - by poor historian Physical Exam Vital Signs Date Time Temp Pulse Resp B/P (MAP) Pulse Ox O2 Delivery O2 Flow Rate FiO2 12/08/17 15:18 97.5 95 20 120/71 91 Room Air 97.5 Sp02 EP Interpretation: reviewed, normal General Appearance: normal inspection, lethargic, thin, Chronically Ill Head: normocephalic, atraumatic ENT: normal ENT inspection, hearing grossly normal, normal voice Neck: normal inspection, supple, no bony tend, limited range of motion - kyphotic Respiratory: normal inspection, lungs clear, normal breath sounds, no respiratory distress, no retraction, no wheezing Cardiovascular #1: regular rate, rhythm, no edema Gastrointestinal: normal inspection, normal bowel sounds, non tender, soft, no guarding, no hernia Genitourinary: no CVA tenderness Musculoskeletal: normal inspection, back normal, normal range of motion Neurologic: motor weakness, other - aphasic, minimally responsive Psychiatric: normal inspection, judgement/insight normal, mood/affect normal Skin: normal inspection, normal color, no rash Medical Decision Making Diagnostic Impression: Primary Impression: Urinary tract infection Additional Impressions: Sepsis Dehydration Failure to thrive Gastritis Elevated troponin ER Course Patient presented for generalized weakness. Differential diagnosis included was not limited to anemia, urinary tract infection, electrolyte abnormality, hypothyroidism, myocardial infarction, myasthenia gravis, dehydration, among others. Because of complexity of patient's case laboratory testing and imaging studies were ordered. The patient appears to have evidence of urinary infection and dehydration. Patient started on IV fluids as well as IV antibiotics. Dr. Khanh Haji was contacted for inpatient management due to primary care physician.Patient will be admitted to the medical [facility] after discuss with doctor Haji regarding patients troponin. Labs Test 12/08/17 16:20 White Blood Count 19.9 K/UL (4.8-10.8) Red Blood Count 4.41 M/UL (4.70-6.10) Hemoglobin 12.9 G/DL (14.2-18.0) Hematocrit 40.8 % (42.0-52.0) Mean Corpuscular Volume 93 FL (80-99) Mean Corpuscular Hemoglobin 29.3 PG (27.0-31.0) Mean Corpuscular Hemoglobin Concent 31.6 G/DL (32.0-36.0) Red Cell Distribution Width 14.8 % (11.6-14.8) Platelet Count 136 K/UL (150-450) Mean Platelet Volume 7.6 FL (6.5-10.1) Neutrophils (%) (Auto) % (45.0-75.0) Lymphocytes (%) (Auto) % (20.0-45.0) Monocytes (%) (Auto) % (1.0-10.0) Eosinophils (%) (Auto) % (0.0-3.0) Basophils (%) (Auto) % (0.0-2.0) Urine Color Yellow Urine Appearance Slightly cloudy Urine pH 5 (4.5-8.0) Urine Specific [place] 1.020 (1.005-1.035) Urine Protein 2+ (NEGATIVE) Urine Glucose (UA) Negative (NEGATIVE) Urine Ketones Negative (NEGATIVE) Urine Occult Blood 5+ (NEGATIVE) Urine Nitrite Negative (NEGATIVE) Urine Bilirubin Negative (NEGATIVE) Urine Urobilinogen Normal MG/DL (0.0-1.0) Urine Leukocyte Esterase 3+ (NEGATIVE) Urine RBC Tntc /HPF (0 - 0) Urine WBC Tntc /HPF (0 - 0) Urine Squamous Epithelial Cells None /LPF (NONE/OCC) Urine Amorphous Sediment Moderate /LPF (NONE) Urine Bacteria Many /HPF (NONE) Troponin I 1.367 ng/mL (0.000-0.056) EKG Diagnostic Results Rate: normal - 96 Rhythm: NSR ST Segments: no acute changes Last Vital Signs Date Time Temp Pulse Resp B/P (MAP) Pulse Ox O2 Delivery O2 Flow Rate FiO2 12/08/17 15:18 97.5 95 20 120/71 91 Room Air 97.5 Status: unchanged Disposition: ADMITTED INPATIENT Condition: Serious Nick Rivera MD Dec 08, 2017 15:31
[2017-12-08] MEDS ORDERED: VITAMIN C500 M1 ORAL (15:41)
[2017-12-08] MEDS ORDERED: IRON325 M1 PO (15:41)
[2017-12-08 16:31] LABS: APPEARANCE,URINE SLIGHTLY CLOUDY; BILIRUBIN, URINE NEGATIVE (NEGATIVE); GLUCOSE, URINE (UA) NEGATIVE (NEGATIVE); KETONES,URINE NEGATIVE (NEGATIVE); LEUKOCYTE ESTERASE ,URINE 3+ (NEGATIVE); NITRITE,URINE NEGATIVE (NEGATIVE); PH,URINE 5 (4.5-8.0); PROTEIN,URINE 2+ (NEGATIVE); UROBILINOGEN,URINE NORMAL MG/DL (0.0-1.0)
--- NOTE | 2017-12-08 16:31 | Diagnostic Imaging Report ---
Indication: Shortness of breath Technique: One view of the chest Comparison: 11/27/2016 Findings: There is some atelectasis at the left lung base. Lungs and pleural spaces are otherwise clear. Heart size is normal. There is degenerative change of both shoulders noted Impression: Left basilar atelectasis. No acute process otherwise
[2017-12-08 16:35] LABS: COLOR,URINE YELLOW
[2017-12-08 16:42] LABS: HEMATOCRIT 40.8 % (42.0-52.0); HEMOGLOBIN 12.9 G/DL (14.2-18.0); MEAN CORPUSCULAR VOLUME 93 FL (80-99); PLATELET COUNT 136 K/UL (150-450); RED BLOOD COUNT 4.41 M/UL (4.70-6.10); RED CELL DISTRIBUTION WIDTH 14.8 % (11.6-14.8); WHITE BLOOD COUNT 19.9 K/UL (4.8-10.8)
[2017-12-08 17:08] LABS: ALANINE AMINOTRANSFERASE 77 U/L (12-78); ALBUMIN 2.2 G/DL (3.4-5.0); ALBUMIN/GLOBULIN RATIO 0.4 (1.0-2.7); ALKALINE PHOSPHATASE 94 U/L (46-116); ANION GAP 15 mmol/L (5-15); ASPARTATE AMINO TRANSFERASE 111 U/L (15-37); BILIRUBIN,TOTAL 0.5 MG/DL (0.2-1.0); BLOOD UREA NITROGEN 108 mg/dL (7-18); CALCIUM 9.3 MG/DL (8.5-10.1); CARBON DIOXIDE 23 MMOL/L (21-32); CHLORIDE 136 MMOL/L (98-107); CKMB 9.8 NG/ML (0.0-3.6); CREATINE KINASE 1109 U/L (26-308); CREATININE 4.1 MG/DL (0.55-1.30); PHOSPHORUS 4.8 MG/DL (2.5-4.9)
[2017-12-08 17:09] LABS: SODIUM 174 MMOL/L (136-145)
[2017-12-08 17:45] VITALS: BP 124/70
[2017-12-08 18:10] VITALS: BP 115/74
[2017-12-08 20:00] VITALS: BP 145/74
[2017-12-08] MEDS ORDERED: Cefepime HCl 1 GM in D5W 55 ML IVPB SCH (21:00)
--- NOTE | 2017-12-08 21:15 | History and Physical Report ---
DATE OF ADMISSION: 12/08/2017 CHIEF COMPLAINT AND REASON FOR HOSPITALIZATION: The patient is an 87-year-old man admitted with dehydration, possible urosepsis, not taking oral diet. HISTORY OF PRESENT ILLNESS: The patient has advanced dementia likely of the Alzheimer's type and likely underlying chronic schizophrenia or similar mood disorder. I was called that he is not eating or drinking for several days. I tried to arrange palliative care and hospice at the [facility] as I known the patient for many, many years and his condition is very poor. However, after discussing with the staff at the [facility], the patient has no family and would not allow palliative care at this time, so he was transferred here for further evaluation and treatment. He was found to have urinary tract infection, severe dehydration, and hypernatremia. PAST MEDICAL HISTORY: Significant for prior severe gastritis, gastrointestinal bleed, atherosclerotic heart disease and I believe a remote myocardial infarction, some aspect of chronic obstructive pulmonary disease, osteoarthritis in the knees, nonambulatory status, and chronic right hip decubitus. PAST SURGICAL HISTORY: Surgeries for ectropion in the eyes bilaterally. MEDICATIONS: At the [facility] include Aricept, aspirin, Coreg, DSS, ferrous sulfate, folic acid, milk of magnesia, multivitamins, Namenda, Os-Jarad, Tylenol, vitamin C, and Zantac. ALLERGIES: None known. HABITS: I believe he is a former smoker. SOCIAL HISTORY: He has no family. He lives in an [facility]. REVIEW OF SYSTEMS: The patient is unable. PHYSICAL EXAMINATION: GENERAL: The patient is lying in bed, in the position. VITAL SIGNS: Temperature 97.3, pulse 79, respirations 18, blood pressure 115/74, and pulse ox 95. HEENT: There is ectropion in both eyes. Sclerae are nonicteric. Oral mucosa dry. He is edentulous. NECK: No adenopathy. LUNGS: Clear. HEART: Regular rhythm. No murmur. ABDOMEN: Soft. No organomegaly or masses. EXTREMITIES: Show severe muscle wasting. There is degenerative changes in the knees and contractures. GENITOURINARY: Mendez catheter is in place. RECTAL: Deferred. SKIN: He has a right hip stage IV decubitus about 1 to 1.5 cm. NEUROLOGIC: The patient is obtunded in the position. PERTINENT LABORATORY DATA: White count 19.9 and hemoglobin 12.9. Sodium 174, potassium 4, BUN 108, and creatinine 4.1. Troponin 1.367. Urinalysis shows hsf-aqxcpsug-yw-count white cells and red cells. IMPRESSION: 1. Severe dehydration. 2. Acute kidney injury secondary to dehydration. 3. Urinary tract infection. 4. Incontinence. 5. Hip decubitus. 6. Severe Alzheimer's. 7. Oydjrqsa-tt-psgkuj protein-calorie malnutrition. 8. Severe osteoarthritis in the knees. 9. History of peptic ulcer disease and prior gastrointestinal bleeding. 10. Atherosclerotic heart disease. 11. Elevated troponin likely acute dfc-GA-fkukjxqlw myocardial infarction because of his sepsis. 12. Sepsis. PLAN: 1. Hydration. 2. Antibiotics. 3. Comfort measures. 4. DNR is appropriate given a man with end-of-life condition and a grave prognosis. Khanh Haji M.D. DR: SHAYNE JOB#: [id number] CC:
[2017-12-09] VITALS: BP 153/79
[2017-12-09 04:00] VITALS: BP 142/80
[2017-12-09 08:01] LABS: HEMATOCRIT 34.6 % (42.0-52.0); HEMOGLOBIN 10.5 G/DL (14.2-18.0); MEAN CORPUSCULAR VOLUME 92 FL (80-99); PLATELET COUNT 115 K/UL (150-450); RED BLOOD COUNT 3.76 M/UL (4.70-6.10); RED CELL DISTRIBUTION WIDTH 14.7 % (11.6-14.8); WHITE BLOOD COUNT 15.8 K/UL (4.8-10.8)
[2017-12-09 08:11] LABS: INR 1.1 (0.9-1.1)
[2017-12-09 08:17] LABS: ANION GAP 16 mmol/L (5-15); BLOOD UREA NITROGEN 104 mg/dL (7-18); CALCIUM 8.5 MG/DL (8.5-10.1); CARBON DIOXIDE 22 MMOL/L (21-32); CHLORIDE 135 MMOL/L (98-107); CREATININE 3.4 MG/DL (0.55-1.30); POTASSIUM 3.9 MMOL/L (3.5-5.1)
[2017-12-09 08:25] LABS: SODIUM 171 MMOL/L (136-145)
[2017-12-09 12:00] VITALS: BP 141/87
[2017-12-09] MEDS ORDERED: CEFEPIME IVPB SCH (15:00)
[2017-12-09] MEDS ORDERED: D5W IVPB SCH (15:00)
[2017-12-09] MEDS: Cefepime HCl 1 GM in D5W 55 ML IVPB SCH (15:27)
[2017-12-09 16:30] VITALS: BP 124/76
--- NOTE | 2017-12-09 19:15 | General Progress Note ---
Assessment/Plan Problem List: (1) SANDRITA (acute kidney injury) ICD Codes: N17.9 - Acute kidney failure, unspecified SNOMED: 69434804 (2) UTI (urinary tract infection) ICD Codes: N39.0 - Urinary tract infection, site not specified SNOMED: 22742018 (3) Alzheimer disease ICD Codes: G30.9 - Alzheimer's disease, unspecified SNOMED: 75860596 (4) Decubitus skin ulcer ICD Codes: L89.90 - Pressure ulcer of unspecified site, unspecified stage SNOMED: 545855595 (5) Elevated troponin ICD Codes: R74.8 - Abnormal levels of other serum enzymes SNOMED: 215026903, 441809610, 415576787 (6) Dehydration ICD Codes: E86.0 - Dehydration SNOMED: 06344142 (7) Failure to thrive SNOMED: 82042014 (8) Dysphagia ICD Codes: R13.10 - Dysphagia SNOMED: 81313930 Assessment/Plan cont atb hydration comfort care Subjective ROS Limited/Unobtainable: Yes Allergies: Coded Allergies: No Known Allergies (Verified , 05/23/08) Objective Last 24 Hour Vital Signs Date Time Temp Pulse Resp B/P (MAP) Pulse Ox O2 Delivery O2 Flow Rate FiO2 12/09/17 16:30 96.6 75 18 124/76 (92) 96 96.6 12/09/17 12:00 96.8 73 18 141/87 (105) 96 96.8 12/09/17 09:00 Room Air 12/09/17 04:00 97.0 81 18 142/80 (100) 96 97.0 12/09/17 00:00 97.5 80 20 153/79 (103) 95 97.5 12/08/17 21:00 Room Air 12/08/17 20:00 97.0 77 20 145/74 (97) 94 97.0 Intake and Output 12/08/17 12/09/17 19:00 07:00 Intake Total 1500 ml Output Total 150 ml 750 ml Balance -150 ml 750 ml Intake IV Total 1500 ml Output Urine Total 150 ml 750 ml Laboratory Tests 12/09/17 07:30: White Blood Count 15.8H, Red Blood Count 3.76L, Hemoglobin 10.5L, Hematocrit 34.6L, Mean Corpuscular Volume 92, Mean Corpuscular Hemoglobin 28.0, Mean Corpuscular Hemoglobin Concent 30.5L, Red Cell Distribution Width 14.7, Platelet Count 115L, Mean Platelet Volume 9.5, Neutrophils (%) (Auto) , Lymphocytes (%) (Auto) , Monocytes (%) (Auto) , Eosinophils (%) (Auto) , Basophils (%) (Auto) , Differential Total Cells Counted 100, Neutrophils % ( Manual) 87H, Lymphocytes % (Manual) 12L, Monocytes % (Manual) 1, Eosinophils % ( Manual) 0, Basophils % (Manual) 0, Band Neutrophils 0, Platelet Estimate DecreasedL, Platelet Morphology Normal, Red Blood Cell Morphology Normal, Prothrombin Time 11.4, Prothromb Time International Ratio 1.1, Sodium Level 171* H, Potassium Level 3.9, Chloride Level 135H, Carbon Dioxide Level 22, Anion Gap 16H, Blood Urea Nitrogen 104H, Creatinine 3.4H, Estimat Glomerular Filtration Rate , Glucose Level 108H, Calcium Level 8.5 Height (Feet): 5 Height (Inches): 6.00 Weight (Pounds): 110 General Appearance: lethargic, thin EENT: other - ectropion Neck: normal alignment Cardiovascular: normal rate Respiratory/Chest: lungs clear Abdomen: non tender, soft Edema: no edema noted Arm (L), no edema noted Arm (R), no edema noted Leg (L), no edema noted Leg (R), no edema noted Pedal (L), no edema noted Pedal (R), no edema noted Generalized Neurologic: unresponsive Skin: other KATERINA JIMENEZ Dec 09, 2017 19:15
[2017-12-09 20:00] VITALS: BP 154/79
--- NOTE | 2017-12-09 21:34 | General Progress Note ---
Assessment/Plan Assessment/Plan GI CONSULT Assessment - Dehydration - ATN - Hypernatremia - UTI - Sepesis - Troponin leak - OBS Recommendations - IVF - abx - follow labs - PEG tentatively scheduled for at 11 am Thank you Mirna Dallas MD Subjective Allergies: Coded Allergies: No Known Allergies (Verified , 05/23/08) Objective Last 24 Hour Vital Signs Date Time Temp Pulse Resp B/P (MAP) Pulse Ox O2 Delivery O2 Flow Rate FiO2 12/09/17 21:01 Room Air 12/09/17 20:00 96.0 71 16 154/79 (104) 94 96.0 12/09/17 16:30 96.6 75 18 124/76 (92) 96 96.6 12/09/17 12:00 96.8 73 18 141/87 (105) 96 96.8 12/09/17 09:00 Room Air 12/09/17 04:00 97.0 81 18 142/80 (100) 96 97.0 12/09/17 00:00 97.5 80 20 153/79 (103) 95 97.5 Intake and Output 12/08/17 12/09/17 19:00 07:00 Intake Total 1500 ml Output Total 150 ml 750 ml Balance -150 ml 750 ml Intake IV Total 1500 ml Output Urine Total 150 ml 750 ml Laboratory Tests 12/09/17 07:30: White Blood Count 15.8H, Red Blood Count 3.76L, Hemoglobin 10.5L, Hematocrit 34.6L, Mean Corpuscular Volume 92, Mean Corpuscular Hemoglobin 28.0, Mean Corpuscular Hemoglobin Concent 30.5L, Red Cell Distribution Width 14.7, Platelet Count 115L, Mean Platelet Volume 9.5, Neutrophils (%) (Auto) , Lymphocytes (%) (Auto) , Monocytes (%) (Auto) , Eosinophils (%) (Auto) , Basophils (%) (Auto) , Differential Total Cells Counted 100, Neutrophils % ( Manual) 87H, Lymphocytes % (Manual) 12L, Monocytes % (Manual) 1, Eosinophils % ( Manual) 0, Basophils % (Manual) 0, Band Neutrophils 0, Platelet Estimate DecreasedL, Platelet Morphology Normal, Red Blood Cell Morphology Normal, Prothrombin Time 11.4, Prothromb Time International Ratio 1.1, Sodium Level 171* H, Potassium Level 3.9, Chloride Level 135H, Carbon Dioxide Level 22, Anion Gap 16H, Blood Urea Nitrogen 104H, Creatinine 3.4H, Estimat Glomerular Filtration Rate , Glucose Level 108H, Calcium Level 8.5 Height (Feet): 5 Height (Inches): 6.00 Weight (Pounds): 110 Mirna Dallas MD Dec 09, 2017 21:34
--- NOTE | 2017-12-10 00:02 | Consultation ---
DATE OF CONSULTATION: 12/09/2017 GASTROENTEROLOGY CONSULTATION CONSULTING PHYSICIAN: Mirna Dallas M.D. REFERRING PHYSICIAN: Khanh Haji M.D. CHIEF COMPLAINT: I was asked to see this patient by Dr. Khanh Haji for gastrostomy tube placement. HISTORY OF PRESENT ILLNESS: The patient is an 87-year-old debilitated white man with underlying dementia and schizophrenia who was brought into the hospital due to poor eating. The patient on admission was found to be significantly dehydrated with renal failure, azotemia, hypernatremia as well as urinary tract infection with elevated white count. The patient has been hydrated and his laboratory parameters have showed eventual improvement. The patient however is unable to provide any history and reportedly there is no family for this patient. His Code status is by default full Code at this time and there have not been successful attempts to convert him to palliative care at this time. This consultation was generated to place a gastrostomy tube for long-term enteral feeding and access for medications. PAST MEDICAL HISTORY: History of gastritis, gastrointestinal bleeding, atherosclerotic cardiovascular disease, past history of possible myocardial infarction, obstructive pulmonary disease, osteoarthritis, dementia, schizophrenia, bedbound state, history of chronic decubitus ulceration, status post surgeries of the eye. MEDICATIONS: See chart list for details. MEDICATIONS: See chart list for details. FAMILY HISTORY: Not available. SOCIAL HISTORY: Not obtainable. REVIEW OF SYSTEMS: Not obtainable. PHYSICAL EXAMINATION: GENERAL: Debilitated white man who moves to stimulation but without seen in his room. HEENT: Normocephalic and atraumatic. Surgical changes were noted in the eyes. Oropharynx showed dry mucous membranes. NECK: Supple. CHEST: Clear to auscultation. CARDIOVASCULAR: Regular rate. ABDOMEN: Soft, flat with good bowel sounds. EXTREMITIES: Some contractures. LABORATORY DATA: Noted. ASSESSMENT: This patient presents with poor oral intake and but thus resulted in significant dehydration, free water deficit, and renal failure. Some of this may be due to his acute urinary tract infection which is also being treated. The patient can be stabilized and then consideration can be made to the placement of the gastrostomy tube. Given the magnitude of his illness, the gastrostomy tube would be placed under emergency consent since there is no family available. Obviously without the feeding he can become quite ill, malnourished, and dehydrated. RECOMMENDATIONS: Per above discussion and per orders written in the chart. Thank you for asking me to participate in care this patient. Mirna Dallas M.D. DR: Jacqueline JOB#: [id number] CC:
[2017-12-10 00:21] VITALS: BP 147/76
[2017-12-10 04:00] VITALS: BP 129/74
[2017-12-10 08:00] VITALS: BP 128/60
[2017-12-10 09:10] LABS: ANION GAP 14 mmol/L (5-15); BLOOD UREA NITROGEN 77 mg/dL (7-18); CALCIUM 7.9 MG/DL (8.5-10.1); CARBON DIOXIDE 18 MMOL/L (21-32); CHLORIDE 129 MMOL/L (98-107); CREATININE 2.2 MG/DL (0.55-1.30); POTASSIUM 4.1 MMOL/L (3.5-5.1)
[2017-12-10 09:12] LABS: SODIUM 161 MMOL/L (136-145)
[2017-12-10 12:00] VITALS: BP 136/89
[2017-12-10] MEDS: Cefepime HCl 1 GM in D5W 55 ML IVPB SCH (14:05)
[2017-12-10 15:22] VITALS: BP 158/95
--- NOTE | 2017-12-10 16:02 | General Progress Note ---
Assessment/Plan Assessment/Plan Assessment - Dehydration - ATN - Hypernatremia - UTI - Sepesis - Troponin leak - a fib - OBS Recommendations - IVF - abx - follow labs - cardiology eval - PEG tentatively scheduled for Th at 11 am - 2 MD emergency consent given malnutrition and severity of illness due to not eating Subjective Allergies: Coded Allergies: No Known Allergies (Verified , 05/23/08) Subjective above noted awake, non communicative labs noted found a fib on EKG Objective Last 24 Hour Vital Signs Date Time Temp Pulse Resp B/P (MAP) Pulse Ox O2 Delivery O2 Flow Rate FiO2 12/10/17 15:22 98.7 86 19 158/95 (116) 97 98.7 12/10/17 12:00 97.3 71 18 136/89 (105) 97 97.3 12/10/17 09:00 Room Air 12/10/17 08:00 97.6 60 19 128/60 (82) 97 97.6 12/10/17 04:00 96.0 68 17 129/74 (92) 96 96.0 12/10/17 00:21 96.1 67 16 147/76 (99) 99 96.1 12/09/17 21:01 Room Air 12/09/17 20:00 96.0 71 16 154/79 (104) 94 96.0 12/09/17 16:30 96.6 75 18 124/76 (92) 96 96.6 Intake and Output 12/09/17 12/10/17 19:00 07:00 Intake Total 200 ml 1520 ml Output Total 550 ml 800 ml Balance -350 ml 720 ml Intake Oral 120 ml IV Total 200 ml 1400 ml Output Urine Total 550 ml 800 ml Laboratory Tests 12/10/17 07:50: Sodium Level 161*H, Potassium Level 4.1, Chloride Level 129H, Carbon Dioxide Level 18L, Anion Gap 14, Blood Urea Nitrogen 77H, Creatinine 2.2H, Estimat Glomerular Filtration Rate , Glucose Level 81, Calcium Level 7.9L, Troponin I 1.341H Height (Feet): 5 Height (Inches): 6.00 Weight (Pounds): 138 Objective Thin elderly WM NCAT supple CTA IR IR abd soft / flat no edema OBS Mirna Dallas MD Dec 10, 2017 16:02
--- NOTE | 2017-12-10 17:50 | General Progress Note ---
Assessment/Plan Problem List: (1) SANDRITA (acute kidney injury) ICD Codes: N17.9 - Acute kidney failure, unspecified SNOMED: 75967975 (2) UTI (urinary tract infection) ICD Codes: N39.0 - Urinary tract infection, site not specified SNOMED: 31639834 (3) Alzheimer disease ICD Codes: G30.9 - Alzheimer's disease, unspecified SNOMED: 73822432 (4) Decubitus skin ulcer ICD Codes: L89.90 - Pressure ulcer of unspecified site, unspecified stage SNOMED: 920059321 (5) Elevated troponin ICD Codes: R74.8 - Abnormal levels of other serum enzymes SNOMED: 278346044, 709589989, 399362375 (6) Dehydration ICD Codes: E86.0 - Dehydration SNOMED: 76368416 (7) Failure to thrive SNOMED: 39107593 (8) Dysphagia ICD Codes: R13.10 - Dysphagia SNOMED: 71542842 Assessment/Plan cont atb hydration comfort care start ngt feed Subjective ROS Limited/Unobtainable: Yes Allergies: Coded Allergies: No Known Allergies (Verified , 05/23/08) Objective Last 24 Hour Vital Signs Date Time Temp Pulse Resp B/P (MAP) Pulse Ox O2 Delivery O2 Flow Rate FiO2 12/10/17 15:22 98.7 86 19 158/95 (116) 97 98.7 12/10/17 12:00 97.3 71 18 136/89 (105) 97 97.3 12/10/17 09:00 Room Air 12/10/17 08:00 97.6 60 19 128/60 (82) 97 97.6 12/10/17 04:00 96.0 68 17 129/74 (92) 96 96.0 12/10/17 00:21 96.1 67 16 147/76 (99) 99 96.1 12/09/17 21:01 Room Air 12/09/17 20:00 96.0 71 16 154/79 (104) 94 96.0 Intake and Output 12/09/17 12/10/17 19:00 07:00 Intake Total 200 ml 1520 ml Output Total 550 ml 800 ml Balance -350 ml 720 ml Intake Oral 120 ml IV Total 200 ml 1400 ml Output Urine Total 550 ml 800 ml Laboratory Tests 12/10/17 07:50: Sodium Level 161*H, Potassium Level 4.1, Chloride Level 129H, Carbon Dioxide Level 18L, Anion Gap 14, Blood Urea Nitrogen 77H, Creatinine 2.2H, Estimat Glomerular Filtration Rate , Glucose Level 81, Calcium Level 7.9L, Troponin I 1.341H Height (Feet): 5 Height (Inches): 6.00 Weight (Pounds): 138 General Appearance: lethargic EENT: other - ectropion Neck: normal alignment Cardiovascular: normal rate Respiratory/Chest: lungs clear Abdomen: non tender Neurologic: unresponsive KATERINA JIMENEZ Dec 10, 2017 17:50
[2017-12-10 20:00] VITALS: BP 133/66
[2017-12-11] VITALS: BP 159/60
[2017-12-11 04:00] VITALS: BP 157/80
--- NOTE | 2017-12-11 07:30 | Consultation ---
DATE OF CONSULTATION: 12/10/2017 CARDIOLOGY CONSULTATION CONSULTING PHYSICIAN: Tigre Kay M.D. REQUESTING PHYSICIAN: Khanh Haji M.D. REASON FOR CONSULTATION: Elevated troponin level. HISTORY OF PRESENT ILLNESS: This is a debilitated 87-year-old white male with advanced dementia and schizophrenia who has been eating poorly and developed severe protein-calorie malnutrition, dehydration and multiple electrolyte abnormalities. He was noted to have an elevated troponin level. PEG placement has been deferred based on these findings, and I have been asked to assess cardiovascular status and risk. PAST MEDICAL HISTORY: Gastritis with history of GI bleeding, atherosclerotic cardiovascular disease, prior history of myocardial infarction, COPD, osteoarthritis, cerebrovascular disease, dementia, schizophrenia, debility and immobility, chronic decubiti, and prior eye surgeries. MEDICATIONS: Current medications, reviewed and reconciled. FAMILY HISTORY: Not known. SOCIAL HISTORY: Not obtainable. REVIEW OF SYSTEMS: Otherwise not obtainable. PHYSICAL EXAMINATION: GENERAL: Contracted, debilitated, but no apparent distress, noncommunicative. VITAL SIGNS: Blood pressure 128/60, pulse 60, respirations 19, and afebrile. HEENT: Temporal wasting. Dry mucous membranes. NECK: Supple. LUNGS: With diminished breath sounds. No wheezing or rales. CARDIAC: Irregular rhythm. Normal S1 and S2. No murmur, rub, or gallop appreciated. ABDOMEN: Soft. EXTREMITIES: With no edema. SKIN: Turgor is poor. NEUROLOGIC: Severe cognitive impairment noted. LABORATORY AND DIAGNOSTIC DATA: Labs on admission, sodium 171, potassium 3.9, chloride 135, bicarbonate 22, BUN 104, and creatinine 3.4. Troponin 1.367. Repeated today, troponin 1.341. White count on admission 19.9 and today 15.8. Urinalysis with too numerous to count white cells. EKG pending. Chest x-ray with no acute process. IMPRESSION: 1. Severe dehydration with hypernatremia. 2. Probable atrial fibrillation. 3. Hyperchloremia. 4. Hypovolemia. 5. Acute renal failure. 6. Probable acute myocardial infarction due to hypoperfusion of coronary bed in the setting of underlying atherosclerosis. 7. Cerebrovascular disease with advanced dementia. 8. Urinary tract infection with sepsis. PLAN: Await EKG. Anti-platelet therapy with aspirin. NG tube for now. Defer PEG placement. Free water replacement. Empiric antibiotics. Serial troponin levels. CK and CK-MB fractions. Not a candidate for anti-coagulation. Reassess for endoscopy and PEG in the next 72 hours once metabolically stabilized and treated for acute infection. Tigre Kay M.D. DR: ABBIE JOB#: [id number] CC: NICOLASA
[2017-12-11 07:37] LABS: HEMATOCRIT 36.9 % (42.0-52.0); HEMOGLOBIN 11.5 G/DL (14.2-18.0); MEAN CORPUSCULAR VOLUME 90 FL (80-99); PLATELET COUNT 89 K/UL (150-450); RED BLOOD COUNT 4.11 M/UL (4.70-6.10); WHITE BLOOD COUNT 9.1 K/UL (4.8-10.8)
[2017-12-11 07:52] LABS: CKMB 10.4 NG/ML (0.0-3.6)
[2017-12-11 07:57] LABS: ALANINE AMINOTRANSFERASE 63 U/L (12-78); ALBUMIN 1.7 G/DL (3.4-5.0); ALBUMIN/GLOBULIN RATIO 0.4 (1.0-2.7); ALKALINE PHOSPHATASE 76 U/L (46-116); ANION GAP 13 mmol/L (5-15); ASPARTATE AMINO TRANSFERASE 85 U/L (15-37); BILIRUBIN,TOTAL 0.4 MG/DL (0.2-1.0); BLOOD UREA NITROGEN 53 mg/dL (7-18); CALCIUM 7.5 MG/DL (8.5-10.1); CARBON DIOXIDE 18 MMOL/L (21-32); CHLORIDE 122 MMOL/L (98-107); CREATININE 1.5 MG/DL (0.55-1.30); POTASSIUM 3.5 MMOL/L (3.5-5.1); SODIUM 153 MMOL/L (136-145)
[2017-12-11 08:00] VITALS: BP 168/99
[2017-12-11] MEDS ORDERED: ceFAZolin 1gm/50ml Premix 50 ML IV ONE (10:00)
--- NOTE | 2017-12-11 11:40 | General Progress Note ---
Assessment/Plan Assessment/Plan Assessment - Dehydration - ATN - Hypernatremia - UTI - Sepesis - Troponin leak - rhabdo - a fib - OBS Recommendations - IVF - abx - follow labs - TF - cardiology f/u - PEG postponed until more stable Subjective Allergies: Coded Allergies: No Known Allergies (Verified , 05/23/08) Subjective above noted non communicative on tube feeds Objective Last 24 Hour Vital Signs Date Time Temp Pulse Resp B/P (MAP) Pulse Ox O2 Delivery O2 Flow Rate FiO2 12/11/17 08:00 97.6 74 20 168/99 (122) 100 97.6 12/11/17 04:00 97.9 66 19 157/80 (105) 95 97.9 12/11/17 00:00 97.5 70 18 159/60 (93) 96 97.5 12/10/17 21:00 Room Air 12/10/17 20:00 98.2 63 16 133/66 (88) 96 98.2 12/10/17 15:22 98.7 86 19 158/95 (116) 97 98.7 12/10/17 12:00 97.3 71 18 136/89 (105) 97 97.3 Intake and Output 12/10/17 12/11/17 19:00 07:00 Intake Total 1600 ml 1040 ml Output Total 1000 ml Balance 600 ml 1040 ml Free Water 60 ml IV Total 1600 ml 800 ml Tube Feeding 180 ml Output Urine Total 1000 ml Laboratory Tests 12/11/17 06:30: White Blood Count 9.1, Red Blood Count 4.11L, Hemoglobin 11.5L, Hematocrit 36.9L , Mean Corpuscular Volume 90, Mean Corpuscular Hemoglobin 27.9, Mean Corpuscular Hemoglobin Concent 31.1L, Red Cell Distribution Width 14.0, Platelet Count 89L, Mean Platelet Volume 11.0H, Neutrophils (%) (Auto) , Lymphocytes (%) (Auto) , Monocytes (%) (Auto) , Eosinophils (%) (Auto) , Basophils (%) (Auto) , Differential Total Cells Counted 100, Neutrophils % ( Manual) 86H, Lymphocytes % (Manual) 10L, Monocytes % (Manual) 1, Eosinophils % ( Manual) 3, Basophils % (Manual) 0, Band Neutrophils 0, Platelet Estimate DecreasedL, Platelet Morphology Normal, Polychromasia Occasional, Sodium Level 153H, Potassium Level 3.5, Chloride Level 122H, Carbon Dioxide Level 18L, Anion Gap 13, Blood Urea Nitrogen 53H, Creatinine 1.5H, Estimat Glomerular Filtration Rate , Glucose Level 101, Calcium Level 7.5L, Total Bilirubin 0.4, Aspartate Amino Transf (AST/SGOT) 85H, Alanine Aminotransferase (ALT/SGPT) 63, Alkaline Phosphatase 76, Total Creatine Kinase 1664H, Creatine Kinase MB 10.4H, Creatine Kinase MB Relative Index 0.6, Troponin I 0.878H, Total Protein 5.8L, Albumin 1.7L, Globulin 4.1, Albumin/Globulin Ratio 0.4L Height (Feet): 5 Height (Inches): 6.00 Weight (Pounds): 138 Objective Thin elderly WM NCAT supple CTA IR IR abd soft / flat no edema OBS Mirna Dallas MD Dec 11, 2017 11:40
[2017-12-11 12:00] VITALS: BP 163/88
[2017-12-11 12:36] LABS: ANION GAP 12 mmol/L (5-15); BLOOD UREA NITROGEN 49 mg/dL (7-18); CALCIUM 7.6 MG/DL (8.5-10.1); CARBON DIOXIDE 19 MMOL/L (21-32); CHLORIDE 120 MMOL/L (98-107); CREATININE 1.6 MG/DL (0.55-1.30); POTASSIUM 3.5 MMOL/L (3.5-5.1); SODIUM 151 MMOL/L (136-145)
[2017-12-11] MEDS: Cefepime HCl 1 GM in D5W 55 ML IVPB SCH (15:23)
--- NOTE | 2017-12-11 15:44 | Diagnostic Imaging Report ---
Indication: Enteric intubation. Technique: XRAY Abdomen 1v Comparison: None FINDINGS/IMPRESSION: Nasogastric tube tip in the distal stomach. Bowel gas pattern is nonspecific. No acute osseous abnormality. There is dense stool in the rectum. Patchy airspace opacities noted at the left base. This corresponds with the preliminary report.
[2017-12-11 16:00] VITALS: BP 139/79
--- NOTE | 2017-12-11 17:21 | General Progress Note ---
Assessment/Plan Problem List: (1) SANDRITA (acute kidney injury) ICD Codes: N17.9 - Acute kidney failure, unspecified SNOMED: 70550743 (2) UTI (urinary tract infection) ICD Codes: N39.0 - Urinary tract infection, site not specified SNOMED: 89400620 (3) Alzheimer disease ICD Codes: G30.9 - Alzheimer's disease, unspecified SNOMED: 97621670 (4) Decubitus skin ulcer ICD Codes: L89.90 - Pressure ulcer of unspecified site, unspecified stage SNOMED: 406239019 (5) Elevated troponin ICD Codes: R74.8 - Abnormal levels of other serum enzymes SNOMED: 281451688, 907169791, 410221655 (6) Dehydration ICD Codes: E86.0 - Dehydration SNOMED: 95317928 (7) Failure to thrive SNOMED: 78433005 (8) Dysphagia ICD Codes: R13.10 - Dysphagia SNOMED: 15270609 Assessment/Plan cont atb hydration comfort care start ngt feed lab improving Subjective ROS Limited/Unobtainable: Yes Allergies: Coded Allergies: No Known Allergies (Verified , 05/23/08) Objective Last 24 Hour Vital Signs Date Time Temp Pulse Resp B/P (MAP) Pulse Ox O2 Delivery O2 Flow Rate FiO2 12/11/17 16:00 97.9 82 20 139/79 (99) 97 97.9 12/11/17 13:37 77 163/88 12/11/17 12:00 98.7 77 19 163/88 (113) 98.7 12/11/17 09:00 Room Air 12/11/17 08:00 97.6 74 20 168/99 (122) 100 97.6 12/11/17 04:00 97.9 66 19 157/80 (105) 95 97.9 12/11/17 00:00 97.5 70 18 159/60 (93) 96 97.5 12/10/17 21:00 Room Air 12/10/17 20:00 98.2 63 16 133/66 (88) 96 98.2 Intake and Output 12/10/17 12/11/17 19:00 07:00 Intake Total 1600 ml 1040 ml Output Total 1000 ml Balance 600 ml 1040 ml Free Water 60 ml IV Total 1600 ml 800 ml Tube Feeding 180 ml Output Urine Total 1000 ml Laboratory Tests 12/11/17 06:30: White Blood Count 9.1, Red Blood Count 4.11L, Hemoglobin 11.5L, Hematocrit 36.9L , Mean Corpuscular Volume 90, Mean Corpuscular Hemoglobin 27.9, Mean Corpuscular Hemoglobin Concent 31.1L, Red Cell Distribution Width 14.0, Platelet Count 89L, Mean Platelet Volume 11.0H, Neutrophils (%) (Auto) , Lymphocytes (%) (Auto) , Monocytes (%) (Auto) , Eosinophils (%) (Auto) , Basophils (%) (Auto) , Differential Total Cells Counted 100, Neutrophils % ( Manual) 86H, Lymphocytes % (Manual) 10L, Monocytes % (Manual) 1, Eosinophils % ( Manual) 3, Basophils % (Manual) 0, Band Neutrophils 0, Platelet Estimate DecreasedL, Platelet Morphology Normal, Polychromasia Occasional, Sodium Level 153H, Potassium Level 3.5, Chloride Level 122H, Carbon Dioxide Level 18L, Anion Gap 13, Blood Urea Nitrogen 53H, Creatinine 1.5H, Estimat Glomerular Filtration Rate , Glucose Level 101, Calcium Level 7.5L, Total Bilirubin 0.4, Aspartate Amino Transf (AST/SGOT) 85H, Alanine Aminotransferase (ALT/SGPT) 63, Alkaline Phosphatase 76, Total Creatine Kinase 1664H, Creatine Kinase MB 10.4H, Creatine Kinase MB Relative Index 0.6, Troponin I 0.878H, Total Protein 5.8L, Albumin 1.7L, Globulin 4.1, Albumin/Globulin Ratio 0.4L 12/11/17 12:15: Sodium Level 151H, Potassium Level 3.5, Chloride Level 120H, Carbon Dioxide Level 19L, Anion Gap 12, Blood Urea Nitrogen 49H, Creatinine 1.6H, Estimat Glomerular Filtration Rate , Glucose Level 154H, Calcium Level 7.6L Height (Feet): 5 Height (Inches): 6.00 Weight (Pounds): 138 General Appearance: lethargic EENT: other - eyes closed Neck: normal alignment Cardiovascular: regular rhythm Respiratory/Chest: lungs clear Abdomen: non tender Edema: 2+ Arm (L), 2+ Arm (R), 2+ Leg (L), 2+ Leg (R), 2+ Pedal (L), 2+ Pedal ( R), 2+ Generalized Neurologic: unresponsive KATERINA JIMENEZ Dec 11, 2017 17:21
--- NOTE | 2017-12-11 18:45 | Progress Note ---
DATE: 12/11/2017 CARDIOLOGY PROGRESS NOTE SUBJECTIVE: The patient remains unresponsive and contracted. He continues to be on IV fluids and the nutrition by feeding tube. EKG was obtained again and it is difficult to reinterpret because of motion artifact, but the rhythm reveals atrial fibrillation with nonspecific ST-T wave changes and no evidence of prior infarct or acute infarct. OBJECTIVE: VITAL SIGNS: Blood pressure 168/99, pulse 74, and respirations 20. LUNGS: Diminished breath sounds. HEART: Irregularly irregular rhythm. ABDOMEN: Soft. SKIN: With poor turgor. EXTREMITIES: No edema. LABORATORY DATA: White count down to 9 and hemoglobin 11.5. Sodium down to 151, potassium 3.5, chloride 120, bicarb 19, BUN 49, and creatinine 1.6. CK is 1664, CK-MB is 10.4, index 0.3, and troponin down to 0.878 with albumin of 1.7. IMPRESSION: 1. Severe dehydration. 2. Hypernatremia. 3. Hypovolemia. 4. Hyperchloremia, improving. 5. Acute renal failure, improved. 6. Metabolic acidosis. 7. Acute myocardial infarction. 8. Paroxysmal atrial fibrillation. 9. Severe protein-calorie malnutrition. 10. Advanced dementia. 11. Component of rhabdomyolysis. 12. Hypertension, labile. PLAN: 1. Conservative management. 2. Hold anti-platelet therapy until G-tube placement. Defer G-tube placement, however, for several days until metabolic parameters and infection have been fully stabilized. 3. Add beta-kael for blood pressure management and antianginal benefits. 4. No plan for anticoagulation in this clinical setting. Tigre Kay M.D. DR: KAVYA JOB#: [id number] CC:
[2017-12-11 20:00] VITALS: BP 150/71
[2017-12-11] MEDS: Potassium Chloride 30 MEQ in 1/2 NS 1000ml 1,000 ML IV SCH (21:28)
[2017-12-12] VITALS (7 sets, daily range): BP systolic 151–164; BP diastolic 67–90
--- NOTE | 2017-12-12 00:42 | Cardiology Report ---
APPROVED REPORT EKG Measurement Heart [id number] Atrial fibrillation Septal infarct, age undetermined Abnormal ECG
[2017-12-12] MEDS: Potassium Chloride 30 MEQ in 1/2 NS 1000ml 1,000 ML IV SCH ×3 (04:46→21:07)
[2017-12-12 06:34] LABS: BASOPHILS % (AUTO) 0.3 % (0.0-2.0); EOSINOPHILS % (AUTO) 2.7 % (0.0-3.0); HEMATOCRIT 31.2 % (42.0-52.0); HEMOGLOBIN 9.9 G/DL (14.2-18.0); LYMPHOCYTES % (AUTO) 8.5 % (20.0-45.0); MEAN CORPUSCULAR VOLUME 88 FL (80-99); MONOCYTES % (AUTO) 4.3 % (1.0-10.0); NEUTROPHILS % (AUTO) 84.2 % (45.0-75.0); PLATELET COUNT 108 K/UL (150-450); RED BLOOD COUNT 3.56 M/UL (4.70-6.10); RED CELL DISTRIBUTION WIDTH 13.5 % (11.6-14.8); WHITE BLOOD COUNT 8.7 K/UL (4.8-10.8)
[2017-12-12 07:20] LABS: ANION GAP 8 mmol/L (5-15); BLOOD UREA NITROGEN 36 mg/dL (7-18); CALCIUM 7.4 MG/DL (8.5-10.1); CARBON DIOXIDE 21 MMOL/L (21-32); CHLORIDE 123 MMOL/L (98-107); CREATININE 1.2 MG/DL (0.55-1.30); POTASSIUM 3.7 MMOL/L (3.5-5.1); SODIUM 152 MMOL/L (136-145)
--- NOTE | 2017-12-12 11:57 | Cardiology Report ---
APPROVED REPORT EXAM: Two-dimensional and M-mode echocardiogram with Doppler and color Doppler. INDICATION Acute myocardial infarction M-Mode DIMENSIONS IVSd1.2 (0.7-1.1cm)Left Atrium (MM)3.5 (1.6-4.0cm) LVDd4.5 (3.5-5.6cm)Aortic Root2.9 (2.0-3.7cm) PWd1.2 (0.7-1.1cm)Aortic Cusp Exc.1.5 (1.5-2.0cm) LVDs3.2 (2.5-4.0cm) PWs1.5 cm Normal left ventricular chamber size, systolic function and wall motion. Left ventricular ejection fraction estimated to be 55 %. Mild left ventricular hypertrophy. Anterior Echo-free space, may be due to pericardial fat or effusion. All other cardiac chamber sizes are within normal limits. Mild focal aortic valve sclerosis with adequate cusp excursion. Mildly thickened mitral valve leaflets with normal excursion. Mild mtral annulus and aortic root calcification. Normal pulmonic valve structure. Normal tricuspid valve structure. Subcostal views not obtainable. A color flow and spectral Doppler study was performed and revealed: Moderate aortic insufficiency. Two jets of moderate mitral regurgitation. Mitral diastolic velocities suggest mild left ventricular diastolic dysfunction (Grade I). Moderate tricuspid regurgitation. Tricuspid systolic velocities suggests peak right ventricular systolic pressure of 39 mmHg, consistent with mild pulmonary hypertension. Mild pulmonic regurgitation present.
--- NOTE | 2017-12-12 13:05 | General Progress Note ---
Assessment/Plan Problem List: (1) SANDRITA (acute kidney injury) ICD Codes: N17.9 - Acute kidney failure, unspecified SNOMED: 27151120 (2) UTI (urinary tract infection) ICD Codes: N39.0 - Urinary tract infection, site not specified SNOMED: 44451674 (3) Alzheimer disease ICD Codes: G30.9 - Alzheimer's disease, unspecified SNOMED: 02599415 (4) Decubitus skin ulcer ICD Codes: L89.90 - Pressure ulcer of unspecified site, unspecified stage SNOMED: 944920171 (5) Elevated troponin ICD Codes: R74.8 - Abnormal levels of other serum enzymes SNOMED: 792816896, 778656755, 833173418 (6) Dehydration ICD Codes: E86.0 - Dehydration SNOMED: 92684783 (7) Failure to thrive SNOMED: 73621030 (8) Dysphagia ICD Codes: R13.10 - Dysphagia SNOMED: 04939685 Assessment/Plan culture neg, dc cefepime hydration comfort care start ngt feed lab improving Subjective ROS Limited/Unobtainable: Yes Allergies: Coded Allergies: No Known Allergies (Verified , 05/23/08) Objective Last 24 Hour Vital Signs Date Time Temp Pulse Resp B/P (MAP) Pulse Ox O2 Delivery O2 Flow Rate FiO2 12/12/17 12:00 97.7 72 20 153/80 (104) 98 97.7 12/12/17 09:00 Room Air 12/12/17 08:44 70 151/84 12/12/17 08:00 97.7 70 20 151/84 (106) 96 97.7 12/12/17 04:30 152/81 (104) 12/12/17 04:00 97.3 66 20 164/90 (114) 93 97.3 12/12/17 00:00 98.2 73 20 156/67 (96) 93 98.2 12/11/17 21:22 74 150/71 12/11/17 21:00 Room Air 12/11/17 20:00 98.2 74 20 150/71 (97) 98 98.2 12/11/17 16:00 97.9 82 20 139/79 (99) 97 97.9 12/11/17 13:37 77 163/88 Intake and Output 12/11/17 12/12/17 19:00 07:00 Intake Total 1200 ml 1421 ml Output Total 800 ml 1200 ml Balance 400 ml 221 ml Free Water 50 ml 120 ml IV Total 1000 ml 1031 ml Tube Feeding 150 ml 270 ml Output Urine Total 800 ml 1200 ml # Bowel Movements 1 1 Laboratory Tests 12/12/17 05:55: White Blood Count 8.7, Red Blood Count 3.56L, Hemoglobin 9.9L, Hematocrit 31.2L , Mean Corpuscular Volume 88, Mean Corpuscular Hemoglobin 27.8, Mean Corpuscular Hemoglobin Concent 31.6L, Red Cell Distribution Width 13.5, Platelet Count 108L, Mean Platelet Volume 9.7, Neutrophils (%) (Auto) 84.2H, Lymphocytes (%) (Auto) 8.5L, Monocytes (%) (Auto) 4.3, Eosinophils (%) (Auto) 2.7, Basophils (%) (Auto) 0.3, Sodium Level 152H, Potassium Level 3.7, Chloride Level 123H, Carbon Dioxide Level 21, Anion Gap 8, Blood Urea Nitrogen 36H, Creatinine 1.2, Estimat Glomerular Filtration Rate , Glucose Level 154H, Calcium Level 7.4L Height (Feet): 5 Height (Inches): 6.00 Weight (Pounds): 138 General Appearance: lethargic EENT: normal ENT inspection Neck: normal alignment Cardiovascular: normal rate, regular rhythm Respiratory/Chest: lungs clear Abdomen: non tender Edema: 2+ Arm (L), 2+ Arm (R), 2+ Leg (L), 2+ Leg (R), 2+ Pedal (L), 2+ Pedal ( R), 2+ Generalized Neurologic: unresponsive KATERINA JIMENEZ Dec 12, 2017 13:05
--- NOTE | 2017-12-12 20:09 | General Progress Note ---
Assessment/Plan Assessment/Plan Assessment - Dehydration - treated - ATN - improved - Hypernatremia - improved - UTI - treated - Sepsis - Troponin leak - rhabdo - a fib - OBS Recommendations - IVF - TF - abx - follow labs - TF - cardiology f/u - PEG Friday at noon, if continues to do well Subjective Allergies: Coded Allergies: No Known Allergies (Verified , 05/23/08) Subjective above noted non communicative on tube feeds Objective Last 24 Hour Vital Signs Date Time Temp Pulse Resp B/P (MAP) Pulse Ox O2 Delivery O2 Flow Rate FiO2 12/12/17 16:00 97.5 71 20 153/75 (101) 96 97.5 12/12/17 12:00 97.7 72 20 153/80 (104) 98 97.7 12/12/17 09:00 Room Air 12/12/17 08:44 70 151/84 12/12/17 08:00 97.7 70 20 151/84 (106) 96 97.7 12/12/17 04:30 152/81 (104) 12/12/17 04:00 97.3 66 20 164/90 (114) 93 97.3 12/12/17 00:00 98.2 73 20 156/67 (96) 93 98.2 12/11/17 21:22 74 150/71 12/11/17 21:00 Room Air Intake and Output 12/11/17 12/12/17 19:00 07:00 Intake Total 1200 ml 1421 ml Output Total 800 ml 1200 ml Balance 400 ml 221 ml Free Water 50 ml 120 ml IV Total 1000 ml 1031 ml Tube Feeding 150 ml 270 ml Output Urine Total 800 ml 1200 ml # Bowel Movements 1 1 Laboratory Tests 12/12/17 05:55: White Blood Count 8.7, Red Blood Count 3.56L, Hemoglobin 9.9L, Hematocrit 31.2L , Mean Corpuscular Volume 88, Mean Corpuscular Hemoglobin 27.8, Mean Corpuscular Hemoglobin Concent 31.6L, Red Cell Distribution Width 13.5, Platelet Count 108L, Mean Platelet Volume 9.7, Neutrophils (%) (Auto) 84.2H, Lymphocytes (%) (Auto) 8.5L, Monocytes (%) (Auto) 4.3, Eosinophils (%) (Auto) 2.7, Basophils (%) (Auto) 0.3, Sodium Level 152H, Potassium Level 3.7, Chloride Level 123H, Carbon Dioxide Level 21, Anion Gap 8, Blood Urea Nitrogen 36H, Creatinine 1.2, Estimat Glomerular Filtration Rate , Glucose Level 154H, Calcium Level 7.4L Height (Feet): 5 Height (Inches): 6.00 Weight (Pounds): 138 Objective Thin elderly WM NCAT supple CTA IR IR abd soft / flat no edema OBS Mirna Dallas MD Dec 12, 2017 20:09
[2017-12-12] MEDS: Carvedilol 6.25mg Tab NG SCH (21:07)
--- NOTE | 2017-12-12 22:00 | Progress Note ---
DATE: 12/12/2017 CARDIOLOGY PROGRESS NOTE SUBJECTIVE: The patient remains unresponsive. He continues on IV fluids and antimicrobials. OBJECTIVE: VITAL SIGNS: Blood pressure0 151/84, pulse 70, and respiratory rate 20. LUNGS: With diminished breath sounds. Mouth with mucous membranes, but hydrated. CARDIAC: With irregularly irregular rhythm. Normal S1 and S2. ABDOMEN: Soft with no edema. LABORATORY AND DIAGNOSTIC DATA: Sodium 152, potassium 3.7, bicarbonate 21, chloride 123, BUN 36, and creatinine 1.2. White count 8.7 and hemoglobin 9.9. IMPRESSION: 1. UTI with sepsis. 2. Dysphagia. 3. Severe protein-calorie malnutrition. 4. Acute myocardial infarction. 5. Rhabdomyolysis. 6. Chronic atrial fibrillation. 7. Hypernatremia with dehydration. 8. Hyperchloremia. PLAN: 1. Hold aspirin until post G-tube. 2. Titrate beta-kael. 3. Continue hypotonic IV fluids. 4. Antimicrobials per primary care physician. 5. Anticipate feeding tube within the next 48 hours with minimally increased perioperative risk. Tigre Kay M.D. DR: ABBIE JOB#: [id number] CC: NICOLASA
[2017-12-13] VITALS (7 sets, daily range): BP systolic 125–147; BP diastolic 59–85
[2017-12-13] MEDS: Potassium Chloride 30 MEQ in 1/2 NS 1000ml 1,000 ML IV SCH ×3 (04:54→20:52)
[2017-12-13 06:19] LABS: BASOPHILS % (AUTO) 0.2 % (0.0-2.0); EOSINOPHILS % (AUTO) 3.3 % (0.0-3.0); HEMATOCRIT 28.8 % (42.0-52.0); HEMOGLOBIN 9.3 G/DL (14.2-18.0); LYMPHOCYTES % (AUTO) 10.4 % (20.0-45.0); MEAN CORPUSCULAR VOLUME 88 FL (80-99); MONOCYTES % (AUTO) 3.9 % (1.0-10.0); NEUTROPHILS % (AUTO) 82.1 % (45.0-75.0); PLATELET COUNT 115 K/UL (150-450); RED BLOOD COUNT 3.29 M/UL (4.70-6.10); RED CELL DISTRIBUTION WIDTH 13.4 % (11.6-14.8); WHITE BLOOD COUNT 8.2 K/UL (4.8-10.8)
[2017-12-13 06:36] LABS: ALANINE AMINOTRANSFERASE 66 U/L (12-78); ALBUMIN 1.5 G/DL (3.4-5.0); ALBUMIN/GLOBULIN RATIO 0.4 (1.0-2.7); ALKALINE PHOSPHATASE 68 U/L (46-116); ANION GAP 9 mmol/L (5-15); ASPARTATE AMINO TRANSFERASE 105 U/L (15-37); BILIRUBIN,TOTAL 0.2 MG/DL (0.2-1.0); BLOOD UREA NITROGEN 30 mg/dL (7-18); CALCIUM 7.7 MG/DL (8.5-10.1); CARBON DIOXIDE 20 MMOL/L (21-32); CHLORIDE 120 MMOL/L (98-107); CREATININE 1.2 MG/DL (0.55-1.30); POTASSIUM 4.7 MMOL/L (3.5-5.1); SODIUM 149 MMOL/L (136-145)
[2017-12-13] MEDS: Carvedilol 6.25mg Tab NG SCH ×2 (08:28→20:52)
--- NOTE | 2017-12-13 13:58 | General Progress Note ---
Assessment/Plan Assessment/Plan Assessment - Dehydration - treated - ATN - improved - Hypernatremia - improved - UTI - treated - Sepsis - Troponin leak - rhabdo - a fib - OBS Recommendations - IVF - TF - abx - follow labs - TF - cardiology f/u - PEG Friday at noon, if continues to do well Subjective Cardiovascular: Denies: no symptoms Allergies: Coded Allergies: No Known Allergies (Verified , 05/23/08) Subjective above noted non communicative on tube feeds Objective Last 24 Hour Vital Signs Date Time Temp Pulse Resp B/P (MAP) Pulse Ox O2 Delivery O2 Flow Rate FiO2 12/13/17 12:00 98.4 70 19 130/61 (84) 96 98.4 12/13/17 09:17 98.0 86 18 143/59 (87) 95 98.0 12/13/17 09:00 Room Air 12/13/17 08:30 98.0 86 18 143/59 (87) 98.0 12/13/17 08:28 56 143/89 12/13/17 04:00 98.8 79 22 147/66 (93) 93 98.8 12/13/17 00:00 98.2 82 20 125/81 (96) 93 98.2 12/12/17 21:07 90 151/70 12/12/17 21:00 Room Air 12/12/17 20:00 98.4 90 20 151/70 (97) 95 98.4 12/12/17 16:00 97.5 71 20 153/75 (101) 96 97.5 Intake and Output 12/12/17 12/13/17 19:00 07:00 Intake Total 1880 ml 1830 ml Output Total 1200 ml 650 ml Balance 680 ml 1180 ml IV Total 1500 ml 1250 ml Tube Feeding 380 ml 580 ml Output Urine Total 1200 ml 650 ml # Bowel Movements 1 Laboratory Tests 12/13/17 05:40: White Blood Count 8.2, Red Blood Count 3.29L, Hemoglobin 9.3L, Hematocrit 28.8L , Mean Corpuscular Volume 88, Mean Corpuscular Hemoglobin 28.2, Mean Corpuscular Hemoglobin Concent 32.2, Red Cell Distribution Width 13.4, Platelet Count 115L, Mean Platelet Volume 10.3H, Neutrophils (%) (Auto) 82.1H, Lymphocytes (%) (Auto) 10.4L, Monocytes (%) (Auto) 3.9, Eosinophils (%) (Auto) 3.3H, Basophils (%) (Auto) 0.2, Sodium Level 149H, Potassium Level 4.7, Chloride Level 120H, Carbon Dioxide Level 20L, Anion Gap 9, Blood Urea Nitrogen 30H, Creatinine 1.2, Estimat Glomerular Filtration Rate , Glucose Level 168H, Calcium Level 7.7L, Total Bilirubin 0.2, Aspartate Amino Transf (AST/SGOT) 105H , Alanine Aminotransferase (ALT/SGPT) 66, Alkaline Phosphatase 68, Troponin I 0.244H, Total Protein 5.2L, Albumin 1.5L, Globulin 3.7, Albumin/Globulin Ratio 0.4L Height (Feet): 5 Height (Inches): 6.00 Weight (Pounds): 138 Objective Thin elderly WM NCAT supple CTA IR IR abd soft / flat no edema OBS Mirna Dallas MD Dec 13, 2017 13:58
--- NOTE | 2017-12-13 17:29 | General Progress Note ---
Assessment/Plan Problem List: (1) SANDRITA (acute kidney injury) ICD Codes: N17.9 - Acute kidney failure, unspecified SNOMED: 25731828 (2) UTI (urinary tract infection) ICD Codes: N39.0 - Urinary tract infection, site not specified SNOMED: 55908444 (3) Alzheimer disease ICD Codes: G30.9 - Alzheimer's disease, unspecified SNOMED: 03360762 (4) Decubitus skin ulcer ICD Codes: L89.90 - Pressure ulcer of unspecified site, unspecified stage SNOMED: 329714290 (5) Elevated troponin ICD Codes: R74.8 - Abnormal levels of other serum enzymes SNOMED: 601737593, 519237926, 221687777 (6) Dehydration ICD Codes: E86.0 - Dehydration SNOMED: 01174109 (7) Failure to thrive SNOMED: 74334012 (8) Dysphagia ICD Codes: R13.10 - Dysphagia SNOMED: 94240112 Assessment/Plan fever, reculture, zosyn hydration comfort care start ngt feed lab improving Subjective ROS Limited/Unobtainable: Yes Allergies: Coded Allergies: No Known Allergies (Verified , 05/23/08) Objective Last 24 Hour Vital Signs Date Time Temp Pulse Resp B/P (MAP) Pulse Ox O2 Delivery O2 Flow Rate FiO2 12/13/17 17:12 102.1 12/13/17 16:00 102.1 99 18 139/80 (99) 98 102.1 12/13/17 12:00 98.4 70 19 130/61 (84) 96 98.4 12/13/17 09:17 98.0 86 18 143/59 (87) 95 98.0 12/13/17 09:00 Room Air 12/13/17 08:30 98.0 86 18 143/59 (87) 98.0 12/13/17 08:28 56 143/89 12/13/17 04:00 98.8 79 22 147/66 (93) 93 98.8 12/13/17 00:00 98.2 82 20 125/81 (96) 93 98.2 12/12/17 21:07 90 151/70 12/12/17 21:00 Room Air 12/12/17 20:00 98.4 90 20 151/70 (97) 95 98.4 Intake and Output 12/12/17 12/13/17 19:00 07:00 Intake Total 1880 ml 1830 ml Output Total 1200 ml 650 ml Balance 680 ml 1180 ml IV Total 1500 ml 1250 ml Tube Feeding 380 ml 580 ml Output Urine Total 1200 ml 650 ml # Bowel Movements 1 Laboratory Tests 12/13/17 05:40: White Blood Count 8.2, Red Blood Count 3.29L, Hemoglobin 9.3L, Hematocrit 28.8L , Mean Corpuscular Volume 88, Mean Corpuscular Hemoglobin 28.2, Mean Corpuscular Hemoglobin Concent 32.2, Red Cell Distribution Width 13.4, Platelet Count 115L, Mean Platelet Volume 10.3H, Neutrophils (%) (Auto) 82.1H, Lymphocytes (%) (Auto) 10.4L, Monocytes (%) (Auto) 3.9, Eosinophils (%) (Auto) 3.3H, Basophils (%) (Auto) 0.2, Sodium Level 149H, Potassium Level 4.7, Chloride Level 120H, Carbon Dioxide Level 20L, Anion Gap 9, Blood Urea Nitrogen 30H, Creatinine 1.2, Estimat Glomerular Filtration Rate , Glucose Level 168H, Calcium Level 7.7L, Total Bilirubin 0.2, Aspartate Amino Transf (AST/SGOT) 105H , Alanine Aminotransferase (ALT/SGPT) 66, Alkaline Phosphatase 68, Troponin I 0.244H, Total Protein 5.2L, Albumin 1.5L, Globulin 3.7, Albumin/Globulin Ratio 0.4L Height (Feet): 5 Height (Inches): 6.00 Weight (Pounds): 138 General Appearance: lethargic EENT: normal ENT inspection Neck: normal alignment Cardiovascular: normal rate Respiratory/Chest: lungs clear Edema: 3+ Arm (L), 3+ Arm (R), 3+ Leg (L), 3+ Leg (R), 3+ Pedal (L), 3+ Pedal ( R), 3+ Generalized Neurologic: unresponsive KATERINA JIMENEZ Dec 13, 2017 17:29
[2017-12-13 19:08] LABS: APPEARANCE,URINE SLIGHTLY CLOUDY; BILIRUBIN, URINE NEGATIVE (NEGATIVE); COLOR,URINE PALE YELLOW; GLUCOSE, URINE (UA) NEGATIVE (NEGATIVE); KETONES,URINE NEGATIVE (NEGATIVE); LEUKOCYTE ESTERASE ,URINE 1+ (NEGATIVE); NITRITE,URINE NEGATIVE (NEGATIVE); PH,URINE 5 (4.5-8.0); PROTEIN,URINE 2+ (NEGATIVE); UROBILINOGEN,URINE NORMAL MG/DL (0.0-1.0)
[2017-12-13] MEDS: Piperacillin/Tazobactam 3.375 GM in NS 110 ML IVPB SCH (21:10)
[2017-12-14] VITALS: BP 140/66
[2017-12-14 04:00] VITALS: BP 153/73
[2017-12-14] MEDS: Potassium Chloride 30 MEQ in 1/2 NS 1000ml 1,000 ML IV SCH ×3 (05:00→20:52)
[2017-12-14] MEDS: Piperacillin/Tazobactam 3.375 GM in NS 110 ML IVPB SCH ×3 (05:21→21:52)
[2017-12-14 06:22] LABS: BASOPHILS % (AUTO) 0.6 % (0.0-2.0); EOSINOPHILS % (AUTO) 2.7 % (0.0-3.0); HEMOGLOBIN 9.4 G/DL (14.2-18.0); LYMPHOCYTES % (AUTO) 8.3 % (20.0-45.0); MEAN CORPUSCULAR VOLUME 88 FL (80-99); MONOCYTES % (AUTO) 5.4 % (1.0-10.0); NEUTROPHILS % (AUTO) 82.9 % (45.0-75.0); PLATELET COUNT 127 K/UL (150-450); RED BLOOD COUNT 3.31 M/UL (4.70-6.10); RED CELL DISTRIBUTION WIDTH 13.7 % (11.6-14.8); WHITE BLOOD COUNT 9.8 K/UL (4.8-10.8)
[2017-12-14 06:36] LABS: ALANINE AMINOTRANSFERASE 59 U/L (12-78); ALBUMIN 1.5 G/DL (3.4-5.0); ALBUMIN/GLOBULIN RATIO 0.3 (1.0-2.7); ALKALINE PHOSPHATASE 68 U/L (46-116); ANION GAP 7 mmol/L (5-15); ASPARTATE AMINO TRANSFERASE 93 U/L (15-37); BILIRUBIN,TOTAL 0.2 MG/DL (0.2-1.0); BLOOD UREA NITROGEN 24 mg/dL (7-18); CALCIUM 7.7 MG/DL (8.5-10.1); CARBON DIOXIDE 22 MMOL/L (21-32); CHLORIDE 116 MMOL/L (98-107); CREATININE 1.2 MG/DL (0.55-1.30); POTASSIUM 4.9 MMOL/L (3.5-5.1); SODIUM 145 MMOL/L (136-145)
[2017-12-14 08:00] VITALS: BP 155/76
[2017-12-14] MEDS: Carvedilol 6.25mg Tab NG SCH ×2 (09:11→20:52)
--- NOTE | 2017-12-14 09:52 | Diagnostic Imaging Report ---
EXAM: XR Chest, 1 View CLINICAL HISTORY: INFECT TECHNIQUE: Frontal view of the chest. COMPARISON: Chest x-ray dated 12/08/17 FINDINGS: Lungs: Subsegmental atelectasis in bilateral lung bases. Mild pulmonary vascular congestion. Pleural space: Unremarkable. No pneumothorax. Heart: Unremarkable. No cardiomegaly. Mediastinum: Unremarkable. Bones/joints: Degenerative changes throughout the spine and shoulder joints. Vasculature: Atherosclerotic calcifications are noted within the aortic arch. Tubes, lines and devices: Nasogastric tube extends below the diaphragm and its tip is excluded from view. IMPRESSION: 1. Subsegmental atelectasis in bilateral lung bases. 2. Mild pulmonary vascular congestion.
[2017-12-14 12:00] VITALS: BP 160/79
--- NOTE | 2017-12-14 14:15 | General Progress Note ---
Assessment/Plan Problem List: (1) SANDRITA (acute kidney injury) ICD Codes: N17.9 - Acute kidney failure, unspecified SNOMED: 13585213 (2) UTI (urinary tract infection) ICD Codes: N39.0 - Urinary tract infection, site not specified SNOMED: 72885276 (3) Alzheimer disease ICD Codes: G30.9 - Alzheimer's disease, unspecified SNOMED: 94508668 (4) Decubitus skin ulcer ICD Codes: L89.90 - Pressure ulcer of unspecified site, unspecified stage SNOMED: 489666204 (5) Elevated troponin ICD Codes: R74.8 - Abnormal levels of other serum enzymes SNOMED: 304203771, 131767181, 702928046 (6) Dehydration ICD Codes: E86.0 - Dehydration SNOMED: 74354840 (7) Failure to thrive SNOMED: 36977310 (8) Dysphagia ICD Codes: R13.10 - Dysphagia SNOMED: 34331664 Assessment/Plan fever, reculture, zosyn hydration comfort care start ngt feed lab improving hydration better, lasix given, atelectasis or infil cont atb Subjective ROS Limited/Unobtainable: Yes Allergies: Coded Allergies: No Known Allergies (Verified , 05/23/08) Objective Last 24 Hour Vital Signs Date Time Temp Pulse Resp B/P (MAP) Pulse Ox O2 Delivery O2 Flow Rate FiO2 12/14/17 12:00 97.7 75 20 160/79 (106) 95 97.7 12/14/17 09:11 88 155/76 12/14/17 09:00 Room Air 12/14/17 08:00 98.1 88 20 155/76 (102) 95 98.1 12/14/17 04:00 99.0 75 20 153/73 (99) 95 99.0 12/14/17 00:00 98.9 85 20 140/66 (90) 95 98.9 12/13/17 21:00 Room Air 12/13/17 20:52 98 132/85 12/13/17 20:00 99.5 98 20 132/85 (101) 96 99.5 12/13/17 18:11 99.5 12/13/17 17:12 102.1 12/13/17 16:00 102.1 99 18 139/80 (99) 98 102.1 Intake and Output 12/13/17 12/14/17 19:00 07:00 Intake Total 1050 ml 1362.5 ml Output Total 2150 ml Balance 1050 ml -787.5 ml IV Total 750 ml 762.5 ml Tube Feeding 300 ml 600 ml Output Urine Total 2150 ml # Bowel Movements 1 Laboratory Tests 12/13/17 17:45: Urine Color Pale yellow, Urine Appearance Slightly cloudy, Urine pH 5, Urine Specific [place] 1.010, Urine Protein 2+H, Urine Glucose (UA) Negative, Urine Ketones Negative, Urine Blood 5+H, Urine Nitrite Negative, Urine Bilirubin Negative, Urine Urobilinogen Normal, Urine Leukocyte Esterase 1+H, Urine RBC 10- 15H, Urine WBC 5-10H, Urine Squamous Epithelial Cells Occasional, Urine Bacteria Few, Urine Granular Casts 0-2H, Urine Mucus FewH 12/14/17 05:45: White Blood Count 9.8, Red Blood Count 3.31L, Hemoglobin 9.4L, Hematocrit 29.0L , Mean Corpuscular Volume 88, Mean Corpuscular Hemoglobin 28.2, Mean Corpuscular Hemoglobin Concent 32.2, Red Cell Distribution Width 13.7, Platelet Count 127L, Mean Platelet Volume 9.8, Neutrophils (%) (Auto) 82.9H, Lymphocytes (%) (Auto) 8.3L, Monocytes (%) (Auto) 5.4, Eosinophils (%) (Auto) 2.7, Basophils (%) (Auto) 0.6, Prothrombin Time 10.9, Prothromb Time International Ratio 1.0, Activated Partial Thromboplast Time 31, Sodium Level 145, Potassium Level 4.9, Chloride Level 116H, Carbon Dioxide Level 22, Anion Gap 7, Blood Urea Nitrogen 24H, Creatinine 1.2, Estimat Glomerular Filtration Rate , Glucose Level 182H, Calcium Level 7.7L, Total Bilirubin 0.2, Aspartate Amino Transf (AST /SGOT) 93H, Alanine Aminotransferase (ALT/SGPT) 59, Alkaline Phosphatase 68, Troponin I 0.104H, Total Protein 5.9L, Albumin 1.5L, Globulin 4.4, Albumin/ Globulin Ratio 0.3L Height (Feet): 5 Height (Inches): 6.00 Weight (Pounds): 138 General Appearance: no apparent distress, lethargic Neck: supple Cardiovascular: regular rhythm Respiratory/Chest: rhonchi - bilaterally Abdomen: non tender, soft Edema: 3+ Arm (L), 3+ Arm (R), 3+ Leg (L), 3+ Leg (R), 3+ Pedal (L), 3+ Pedal ( R), 3+ Generalized KATERINA JIMENEZ Dec 14, 2017 14:15
[2017-12-14 16:00] VITALS: BP 128/69
[2017-12-14 20:00] VITALS: BP 133/67
[2017-12-14] MEDS ORDERED: Tubing IV Secondary IV ONE (21:05)
[2017-12-14] MEDS ORDERED: 1/2 NS 1000ml IV ONE (21:05)
--- NOTE | 2017-12-14 22:51 | General Progress Note ---
Assessment/Plan Assessment/Plan Assessment - Dehydration - treated - ATN - resolved - Hypernatremia - improved - UTI - treated - Sepsis - Troponin leak - rhabdo - a fib - OBS Recommendations - IVF - TF - abx - follow labs - TF - cardiology f/u - PEG Friday- will place under emergency guidelines since no family and needs nutrition as a life sustaining measure Subjective Allergies: Coded Allergies: No Known Allergies (Verified , 05/23/08) Subjective above noted non communicative on tube feeds Objective Last 24 Hour Vital Signs Date Time Temp Pulse Resp B/P (MAP) Pulse Ox O2 Delivery O2 Flow Rate FiO2 12/14/17 21:00 Room Air 12/14/17 20:52 92 133/67 12/14/17 20:00 97.9 92 20 133/67 (89) 100 97.9 12/14/17 16:00 99.3 91 20 128/69 (88) 95 99.3 12/14/17 12:00 97.7 75 20 160/79 (106) 95 97.7 12/14/17 09:11 88 155/76 12/14/17 09:00 Room Air 12/14/17 08:00 98.1 88 20 155/76 (102) 95 98.1 12/14/17 04:00 99.0 75 20 153/73 (99) 95 99.0 12/14/17 00:00 98.9 85 20 140/66 (90) 95 98.9 Intake and Output 12/13/17 12/14/17 19:00 07:00 Intake Total 1050 ml 1362.5 ml Output Total 2150 ml Balance 1050 ml -787.5 ml IV Total 750 ml 762.5 ml Tube Feeding 300 ml 600 ml Output Urine Total 2150 ml # Bowel Movements 1 Laboratory Tests 12/14/17 05:45: White Blood Count 9.8, Red Blood Count 3.31L, Hemoglobin 9.4L, Hematocrit 29.0L , Mean Corpuscular Volume 88, Mean Corpuscular Hemoglobin 28.2, Mean Corpuscular Hemoglobin Concent 32.2, Red Cell Distribution Width 13.7, Platelet Count 127L, Mean Platelet Volume 9.8, Neutrophils (%) (Auto) 82.9H, Lymphocytes (%) (Auto) 8.3L, Monocytes (%) (Auto) 5.4, Eosinophils (%) (Auto) 2.7, Basophils (%) (Auto) 0.6, Prothrombin Time 10.9, Prothromb Time International Ratio 1.0, Activated Partial Thromboplast Time 31, Sodium Level 145, Potassium Level 4.9, Chloride Level 116H, Carbon Dioxide Level 22, Anion Gap 7, Blood Urea Nitrogen 24H, Creatinine 1.2, Estimat Glomerular Filtration Rate , Glucose Level 182H, Calcium Level 7.7L, Total Bilirubin 0.2, Aspartate Amino Transf (AST /SGOT) 93H, Alanine Aminotransferase (ALT/SGPT) 59, Alkaline Phosphatase 68, Troponin I 0.104H, Total Protein 5.9L, Albumin 1.5L, Globulin 4.4, Albumin/ Globulin Ratio 0.3L Height (Feet): 5 Height (Inches): 6.00 Weight (Pounds): 138 Objective Thin elderly WM NCAT supple CTA IR IR abd soft / flat no edema OBS Mirna Dallas MD Dec 14, 2017 22:51
[2017-12-15] VITALS (9 sets, daily range): BP systolic 95–138; BP diastolic 42–74
[2017-12-15] MEDS: Piperacillin/Tazobactam 3.375 GM in NS 110 ML IVPB SCH ×3 (05:15→22:01)
[2017-12-15] MEDS: Carvedilol 6.25mg Tab NG SCH ×2 (09:00→22:04)
[2017-12-15 09:27] LABS: ALANINE AMINOTRANSFERASE 56 U/L (12-78); ALBUMIN 1.5 G/DL (3.4-5.0); ALBUMIN/GLOBULIN RATIO 0.3 (1.0-2.7); ALKALINE PHOSPHATASE 65 U/L (46-116); ANION GAP 7 mmol/L (5-15); ASPARTATE AMINO TRANSFERASE 76 U/L (15-37); BILIRUBIN,TOTAL 0.4 MG/DL (0.2-1.0); BLOOD UREA NITROGEN 26 mg/dL (7-18); CALCIUM 8.1 MG/DL (8.5-10.1); CARBON DIOXIDE 25 MMOL/L (21-32); CHLORIDE 114 MMOL/L (98-107); CREATINE KINASE 1537 U/L (26-308); CREATININE 1.3 MG/DL (0.55-1.30); POTASSIUM 4.3 MMOL/L (3.5-5.1); SODIUM 146 MMOL/L (136-145)
--- NOTE | 2017-12-15 10:55 | Anethesia Preoperative Eval ---
Anesthesia Pre-op PMH/ROS General Date of Evaluation: Dec 15, 2017 Anesthesiologist: Sanjay ASA Score: ASA 3 Mallampati Score Class I : Soft palate, uvula, fauces, pillars visible Class II: Soft palate, uvula, fauces visible Class III: Soft palate, base of uvula visible Class IV: Only hard plate visible Mallampati Classification: Class III Surgeon: Celena Diagnosis: Failure to thrive Surgical Procedure: EGd peg Anesthesia History: none Family History: no anesthesia problems Allergies: Coded Allergies: No Known Allergies (Verified , 05/23/08) Medications: see eMAR Past Medical History Cardiovascular: Reports: HTN Gastrointestinal/Genitourinary: Reports: GERD Neurologic/Psychiatric: Reports: dementia, CVA, depression/anxiety Hematology/Immune: Reports: anemia Musculoskeletal/Integumentary: Reports: OA, DJD Anesthesia Pre-op Phys. Exam Physician Exam Last Vital Signs Date Time Temp Pulse Resp B/P (MAP) Pulse Ox O2 Delivery O2 Flow Rate FiO2 12/15/17 09:00 88 119/68 12/15/17 09:00 Room Air 12/15/17 08:00 98.4 20 100 98.4 Constitutional: NAD Cardiovascular: RRR Respiratory: CTA Airway Exam Mallampati Score: Class II Teeth: missing Anesthesia Pre-op A/P Labs Chemistry Test 12/15/17 07:00 Sodium Level 146 MMOL/L (136-145) H Potassium Level 4.3 MMOL/L (3.5-5.1) Chloride Level 114 MMOL/L (98-107) H Carbon Dioxide Level 25 MMOL/L (21-32) Anion Gap 7 mmol/L (5-15) Blood Urea Nitrogen 26 mg/dL (7-18) H Creatinine 1.3 MG/DL (0.55-1.30) Estimat Glomerular Filtration Rate mL/min (>60) Glucose Level 111 MG/DL (74-106) H Calcium Level 8.1 MG/DL (8.5-10.1) L Total Bilirubin 0.4 MG/DL (0.2-1.0) Aspartate Amino Transf (AST/SGOT) 76 U/L (15-37) H Alanine Aminotransferase (ALT/SGPT) 56 U/L (12-78) Alkaline Phosphatase 65 U/L (46-116) Total Creatine Kinase 1537 U/L (26-308) H Total Protein 6.4 G/DL (6.4-8.2) Albumin 1.5 G/DL (3.4-5.0) L Globulin 4.9 g/dL Albumin/Globulin Ratio 0.3 (1.0-2.7) L Risk Assessment & Plan Assessment: ASA III Plan: MAC Status Change Before Surgery: No Pre-Antibiotics Drug: Jacqueline Harris MD Dec 15, 2017 10:55
[2017-12-15] MEDS ORDERED: NS 500ML IVPB ONE (11:25)
--- NOTE | 2017-12-15 11:28 | Pre-Procedure Note/Attestation ---
Pre-Procedure Note/Attestation Complete Prior to Procedure Planned Procedure: not applicable Procedure Narrative: EGD/PEG Indications for Procedure Pre-Operative Diagnosis: dysphagia, malnutrition Attestation I attest that I am unable to discuss the nature of the procedure; its benefits; risks and complications; and alternatives (and the risks and benefits of such alternatives), prior to the procedure, with the patient (or the patient's legal sales representative sales manager) since the patient has advanced dementia and there is no family or DPOA. I attest that, if there was a reasonable possibility of needing a blood transfusion, the patient (or the patient's legal sales representative sales manager) could not be given the [facility] standardized written summary , pursuant to the [place] Blood Safety Act ([place] Health and Safety Code # 1645, as amended) since the patient has advanced dementia and there is no family or DPOA. I attest that I re-evaluated the patient just prior to the surgery and that there has been no change in the patient's H&P, except as documented below: Mirna Dallas MD Dec 15, 2017 11:28
[2017-12-15] MEDS ORDERED: Lidocaine 1% MPF 10mg/ml 5ml ONE (11:30)
[2017-12-15] MEDS ORDERED: Propofol 200mg/20ml IV ONE (11:30)
[2017-12-15] MEDS ORDERED: LR 1000ml ONE (11:30)
--- NOTE | 2017-12-15 11:31 | General Progress Note ---
Assessment/Plan Assessment/Plan Assessment - Dehydration - treated - ATN - resolved - Hypernatremia - improved - UTI - treated - Sepsis - Troponin leak - rhabdo - presumed cause of mildly abnormal LFT - a fib - OBS Recommendations - IVF - follow LFT/CK - roll side-sie - TF on hold, pending PEG placement - abx - TF - cardiology f/u - PEG Today - will place under emergency guidelines since no family and needs nutrition as a life sustaining measure Subjective Allergies: Coded Allergies: No Known Allergies (Verified , 05/23/08) Subjective above noted non communicative off tube feeds for PEG Objective Last 24 Hour Vital Signs Date Time Temp Pulse Resp B/P (MAP) Pulse Ox O2 Delivery O2 Flow Rate FiO2 12/15/17 09:00 88 119/68 12/15/17 09:00 Room Air 12/15/17 08:00 98.4 88 20 119/68 (85) 100 98.4 12/15/17 04:00 98.5 85 20 117/68 (84) 100 98.5 12/15/17 00:00 98.2 83 20 119/61 (80) 100 98.2 12/14/17 21:00 Room Air 12/14/17 20:52 92 133/67 12/14/17 20:00 97.9 92 20 133/67 (89) 100 97.9 12/14/17 16:00 99.3 91 20 128/69 (88) 95 99.3 12/14/17 12:00 97.7 75 20 160/79 (106) 95 97.7 Intake and Output 12/14/17 12/15/17 19:00 07:00 Intake Total 377.5 ml 347.5 ml Output Total 500 ml 300 ml Balance -122.5 ml 47.5 ml Free Water 50 ml IV Total 27.5 ml 247.5 ml Tube Feeding 350 ml 50 ml Output Urine Total 500 ml 300 ml # Voids 1 # Bowel Movements 1 Laboratory Tests 12/15/17 07:00: Sodium Level 146H, Potassium Level 4.3, Chloride Level 114H, Carbon Dioxide Level 25, Anion Gap 7, Blood Urea Nitrogen 26H, Creatinine 1.3, Estimat Glomerular Filtration Rate , Glucose Level 111H, Calcium Level 8.1L, Total Bilirubin 0.4, Aspartate Amino Transf (AST/SGOT) 76H, Alanine Aminotransferase ( ALT/SGPT) 56, Alkaline Phosphatase 65, Total Creatine Kinase 1537H, Total Protein 6.4, Albumin 1.5L, Globulin 4.9, Albumin/Globulin Ratio 0.3L Height (Feet): 5 Height (Inches): 6.00 Weight (Pounds): 138 Objective Thin elderly WM NCAT supple CTA IR IR abd soft / flat no edema OBS Mirna Dallas MD Dec 15, 2017 11:30
--- NOTE | 2017-12-15 12:09 | Immediate Post-Op Evaluation ---
Immediate Post-Op Evalulation Immediate Post-Op Evalulation Procedure: EGd peg Date of Evaluation: Dec 15, 2017 Time of Evaluation: 12:08 IV Fluids: 200 Blood Products: 0 Estimated Blood Loss: 0 Urinary Output: 0 Blood Pressure Systolic: 95 Blood Pressure Diastolic: 42 Pulse Rate: 62 Respiratory Rate: 17 O2 Sat by Pulse Oximetry: 97 Temperature (Fahrenheit): 97.2 Pain Score (1-10): 0 Nausea: No Vomiting: No Complications 0 Patient Status: awake, reacts, patent, none Hydration Status: adequate Drug: Jacqueline Michele MD Dec 15, 2017 12:09
--- NOTE | 2017-12-15 12:10 | 48 Hour Post Anesthesia Eval ---
Post Anesthesia Evaluation Procedure: EGd peg Date of Evaluation: Dec 15, 2017 Airway: patent Nausea: No Vomiting: No Pain Intensity: 0 Hydration Status: adequate Cardiopulmonary Status: at baseline Mental Status/LOC: patient returned to baseline Post-Anesthesia Complications: 0 Follow-up care needed: N/A - further care as per primary team Jacqueline Medina MD Dec 15, 2017 12:10
--- NOTE | 2017-12-15 13:30 | Progress Note ---
DATE: 12/13/2017 SUBJECTIVE: No new distress. Remains on IV fluids and food feedings by NG tube. He did have fever to 102.1 degrees this afternoon and was recultured. OBJECTIVE: VITAL SIGNS: Blood pressure 130/61, pulse 70, respiratory rate 19. LUNGS: Coarse breath sounds. CARDIOVASCULAR: Irregularly irregular rhythm. Normal S1, S2. ABDOMEN: Soft. There is no edema. Contractures are noted. LABORATORY DATA: White count 8.2, hemoglobin 9.3. Sodium 149, potassium 4.7, bicarbonate 20, chloride 120, BUN 30, creatinine 1.2. Troponin down to 0.244. Albumin 1.5. IMPRESSION: 1. Acute myocardial infarction with troponin trending down and no signs of secondary complication. 2. Dehydration. 3. Hypernatremia, improving. 4. Hyperchloremia, improving. 5. Metabolic acidosis, persisting. 6. Acute on chronic renal failure, recovering. 7. Severe protein-calorie malnutrition. 8. Urinary tract infection with sepsis, now with new fever. PLAN: 1. Check chest x-ray. 2. Continue antimicrobials and respiratory hygiene. 3. Hypotonic IV fluids. 4. Reassess for G-tube placement over the next 24 to 48 hours. Tigre Kay M.D. CHRIST GUZMAN JOB#: [id number] CC:
--- NOTE | 2017-12-15 14:00 | Progress Note ---
DATE: 12/14/2017 CARDIOLOGY PROGRESS NOTE SUBJECTIVE: The patient has not had any recurring fever since yesterday afternoon. OBJECTIVE: VITAL SIGNS: Blood pressure range 155/76, heart rate 88, respiratory rate 20. LUNGS: Few rhonchi. HEART: Irregularly irregular rhythm. Normal S1, S2. ABDOMEN: Soft. There is no edema. LABORATORY AND DIAGNOSTIC DATA: The chest x-ray today reveals mild pulmonary venous congestion and atelectasis on the left. Labs, sodium 145, potassium 4.9, chloride 116, bicarb 22, BUN 24 creatinine 1.2. Troponin 0.104, albumin 1.5. IMPRESSION: 1. Sepsis, recovering. 2. Aspiration pneumonia. 3. Urinary tract infection. 4. Third spacing due to low colloid osmotic pressure. 5. Severe protein-calorie malnutrition. 6. Recovering dehydration, hypernatremia, and hyperchloremia. 7. Resolved acute renal failure. 8. Severe dementia, dysphagia, and aspiration. 9. Atrial fibrillation, rate controlled. PLAN: 1. Continue free water replacement. 2. Continue beta-kael. 3. Hold antiplatelet therapy G-tube. 4. Vascular edema. We will remobilize once colloid osmotic pressure gradient is increased. Stable for G-tube placement from cardiovascular standpoint. 5. No plan for anticoagulation in this age group and clinical setting. Tigre Kay M.D. DR: THOMAS JOB#: [id number] CC:
--- NOTE | 2017-12-15 19:25 | General Progress Note ---
Assessment/Plan Problem List: (1) SANDRITA (acute kidney injury) ICD Codes: N17.9 - Acute kidney failure, unspecified SNOMED: 10500077 (2) UTI (urinary tract infection) ICD Codes: N39.0 - Urinary tract infection, site not specified SNOMED: 63790973 (3) Alzheimer disease ICD Codes: G30.9 - Alzheimer's disease, unspecified SNOMED: 02777401 (4) Decubitus skin ulcer ICD Codes: L89.90 - Pressure ulcer of unspecified site, unspecified stage SNOMED: 978634702 (5) Elevated troponin ICD Codes: R74.8 - Abnormal levels of other serum enzymes SNOMED: 258938322, 939238165, 770126644 (6) Dehydration ICD Codes: E86.0 - Dehydration SNOMED: 64306501 (7) Failure to thrive SNOMED: 17094628 (8) Dysphagia ICD Codes: R13.10 - Dysphagia SNOMED: 46277442 Assessment/Plan fever, reculture, zosyn hydration comfort care start ngt feed lab improving hydration better, lasix given, atelectasis or infil cont atb, PEG 12/15 Subjective ROS Limited/Unobtainable: Yes Allergies: Coded Allergies: No Known Allergies (Verified , 05/23/08) Objective Last 24 Hour Vital Signs Date Time Temp Pulse Resp B/P (MAP) Pulse Ox O2 Delivery O2 Flow Rate FiO2 12/15/17 16:00 97.8 85 20 131/68 (89) 100 97.8 12/15/17 12:25 97.8 84 23 118/57 97 Nasal Cannula 3 97.8 12/15/17 12:13 67 18 100/46 97 Nasal Cannula 3 12/15/17 12:09 207.0 62 17 97 12/15/17 12:08 69 21 95/45 97 Nasal Cannula 3 12/15/17 12:03 97.2 62 17 95/42 97 Nasal Cannula 3 97.2 12/15/17 09:00 88 119/68 12/15/17 09:00 Room Air 12/15/17 08:00 98.4 88 20 119/68 (85) 100 98.4 12/15/17 04:00 98.5 85 20 117/68 (84) 100 98.5 12/15/17 00:00 98.2 83 20 119/61 (80) 100 98.2 12/14/17 21:00 Room Air 12/14/17 20:52 92 133/67 12/14/17 20:00 97.9 92 20 133/67 (89) 100 97.9 Intake and Output 12/14/17 12/15/17 19:00 07:00 Intake Total 377.5 ml 347.5 ml Output Total 500 ml 300 ml Balance -122.5 ml 47.5 ml Free Water 50 ml IV Total 27.5 ml 247.5 ml Tube Feeding 350 ml 50 ml Output Urine Total 500 ml 300 ml # Voids 1 # Bowel Movements 1 Laboratory Tests 12/15/17 07:00: Sodium Level 146H, Potassium Level 4.3, Chloride Level 114H, Carbon Dioxide Level 25, Anion Gap 7, Blood Urea Nitrogen 26H, Creatinine 1.3, Estimat Glomerular Filtration Rate , Glucose Level 111H, Calcium Level 8.1L, Total Bilirubin 0.4, Aspartate Amino Transf (AST/SGOT) 76H, Alanine Aminotransferase ( ALT/SGPT) 56, Alkaline Phosphatase 65, Total Creatine Kinase 1537H, Total Protein 6.4, Albumin 1.5L, Globulin 4.9, Albumin/Globulin Ratio 0.3L Height (Feet): 5 Height (Inches): 6.00 Weight (Pounds): 138 General Appearance: lethargic Neck: normal alignment Cardiovascular: normal rate, regular rhythm Respiratory/Chest: lungs clear Abdomen: non tender Edema: 2+ Arm (L), 2+ Arm (R), 2+ Leg (L), 2+ Leg (R), 2+ Pedal (L), 2+ Pedal ( R), 2+ Generalized KATERINA JIMENEZ Dec 15, 2017 19:25
[2017-12-15] MEDS: Potassium Chloride 30 MEQ in 1/2 NS 1000ml 1,000 ML IV SCH (22:00)
--- NOTE | 2017-12-15 22:19 | Endoscopy Procedure Note ---
Endoscopy Procedure Note General Indication for Procedure: dysphagia Procedures Performed: EGD, PEG Operative Findings/Diagnosis: , GERD, Gastritis Specimen: none Pt Tolerated Procedure Well: Yes Estimated Blood Loss: none Anesthesia Anesthesiologist: see report Anesthesia: MAC, moderate sedation Medications Medication Given: see anesthesia record Inserted Devices Implant(s) used?: No GI Core Measures 50 yrs or older w/o bx or poly: Not Applicable 10yrs. F/U not recommended: Not Applicable If not recommended, why?: Mirna Dallas MD Dec 15, 2017 22:18
--- NOTE | 2017-12-15 22:20 | Brief Operative Note ---
Immediate Post Operative Note Operative Note Chief Complaint: dysphagia Pre-op Diagnosis: dysphagia, malnutrition Procedure: EGD. PEG Post-op Diagnosis: Duodenal ulcer, erosive gastritis, GERD with esophageal ulcer, PEG placed Surgeon: nancy Anesthesiologist: see report Specimen: none Complications: none Condition: stable Fluids: recorded Estimated Blood Loss: none Drains: none Implant(s) used?: No Mirna Dallas MD Dec 15, 2017 22:20
--- NOTE | 2017-12-15 23:45 | Procedure Note ---
DATE OF PROCEDURE: 12/15/2017 GASTROLOGY PROCEDURE PROCEDURE: Upper gastrointestinal endoscopy with gastrostomy tube placement. SURGEON: Mirna Dallas M.D. ANESTHESIA: Please see the separate anesthesiologist notes for details. PRE-ENDOSCOPIC DIAGNOSIS: Early dysphagia and malnutrition. POST-ENDOSCOPIC DIAGNOSES: 1. Duodenal ulcer. 2. Erosive and ulcerative gastritis. 3. Gastroesophageal reflux. 4. Status post gastrostomy tube placement. PROCEDURES: The patient was sedated in the supine position. A diagnostic upper endoscope was introduced through the oropharynx and advanced to the duodenum. A 1 cm flat gastric ulcer with black wound base was seen. In the stomach, there was erosive gastritis and in the esophagus, there was linear erosive esophagitis and ulceration. The location for placement of gastrostomy tube was identified by palpation and transillumination techniques. The outside skin was sterilely prepared, anesthetized, and incised and an umbilical needle was used to place the gastrostomy tube using the standard pull technique. The patient was positioned in supine position. The endoscope was removed and the patient was sent to recovery in good condition. COMPLICATIONS: None. RECOMMENDATIONS: 1. Proton pump inhibitor. 2. Observe overnight. 3. Begin tube feedings tomorrow. Mirna Dallas M.D. DR: BIANCA JOB#: [id number] CC: NICOLASA
[2017-12-16] VITALS: BP 130/77
[2017-12-16 04:00] VITALS: BP 147/78
[2017-12-16] MEDS: Piperacillin/Tazobactam 3.375 GM in NS 110 ML IVPB SCH ×2 (05:55→15:07)
--- NOTE | 2017-12-16 07:00 | Progress Note ---
DATE: 12/15/2017 CARDIOLOGY PROGRESS NOTE SUBJECTIVE: The patient remains noncommunicative. He is status post PEG placement today without complications. OBJECTIVE: VITAL SIGNS: Blood pressure 131/68, pulse 85, respiratory rate 20. LUNGS: Diminished breath sounds. CARDIAC: Irregularly irregular. Normal S1, S2. ABDOMEN: Soft, but slightly distended. G-tube intact. No edema. LABORATORY DATA: White count 9.8, hemoglobin 9.4 yesterday. Sodium 146, potassium 4.3, chloride 114, BUN 26, creatinine 1.3 today. Troponin yesterday 0.1. Albumin 1.5. IMPRESSION: 1. Dysphagia, status post PEG. 2. Severe dehydration. 3. Hypernatremia. 4. Hyperchloremia. 5. Acute on chronic renal failure, improving. 6. Severe protein-calorie malnutrition. 7. Acute myocardial infarction. 8. Rhabdomyolysis, resolving. PLAN: 1. Hypotonic IV fluid hydration. 2. Beta-kael per G-tube. 3. Add aspirin if no contraindication. 4. Nutrition by feeding tube. Chiquita Dutta JOB#: [id number] CC:
[2017-12-16 08:00] VITALS: BP 100/78
[2017-12-16] MEDS: Carvedilol 6.25mg Tab NG SCH ×2 (08:25→21:00)
[2017-12-16] MEDS ORDERED: Tubing IV Secondary IV ONE (10:33)
[2017-12-16 12:00] VITALS: BP 144/68
[2017-12-16 16:00] VITALS: BP 122/62
--- NOTE | 2017-12-16 18:03 | Discharge Instructions ---
Discharge Instructions Discharge Instructions Diet: tube feeding - osmolyte 65ml/hr For Congestive Heart Failure Reminder Report to your physician any weight gain of 5 pounds or more in one week. KATERINA JIMENEZ Dec 16, 2017 18:03
[2017-12-16 20:00] VITALS: BP 139/71
[2017-12-16] MEDS: Potassium Chloride 30 MEQ in 1/2 NS 1000ml 1,000 ML IV SCH (20:00)
--- NOTE | 2017-12-16 21:42 | General Progress Note ---
Assessment/Plan Assessment/Plan Assessment - Dehydration - treated - ATN - resolved - Hypernatremia - improved - UTI - treated - Sepsis - Troponin leak - rhabdo - presumed cause of mildly abnormal LFT - a fib - OBS Recommendations - IVF - follow labs - d/c planning - TF - abx - cardiology f/u Subjective Allergies: Coded Allergies: No Known Allergies (Verified , 05/23/08) Subjective above noted non communicative doing OK TF restarted Objective Last 24 Hour Vital Signs Date Time Temp Pulse Resp B/P (MAP) Pulse Ox O2 Delivery O2 Flow Rate FiO2 12/16/17 16:00 97.8 85 21 122/62 (82) 94 97.8 12/16/17 12:00 97.2 81 21 144/68 (93) 94 97.2 12/16/17 09:00 Room Air 12/16/17 08:25 85 100/71 12/16/17 08:00 97.3 85 21 100/78 (85) 94 97.3 12/16/17 04:00 98.3 77 21 147/78 (101) 94 98.3 12/16/17 00:00 98.2 95 20 130/77 (94) 95 98.2 12/15/17 22:04 93 138/74 Intake and Output 12/15/17 12/16/17 19:00 07:00 Intake Total 200 ml 110.0 ml Output Total 425 ml 500 ml Balance -225 ml -390.0 ml IV Total 200 ml 110.0 ml Output Urine Total 425 ml 500 ml # Voids 1 # Bowel Movements 1 Height (Feet): 5 Height (Inches): 6.00 Weight (Pounds): 138 Objective Thin elderly WM NCAT supple CTA IR IR abd soft / flat, (+) GT no edema OBS Mirna Dallas MD Dec 16, 2017 21:42
--- NOTE | 2017-12-17 02:45 | Progress Note ---
DATE: 12/16/2017 CARDIOLOGY PROGRESS NOTE SUBJECTIVE: The patient is status post G-tube placement yesterday without complications. Feedings have been initiated with no vomiting or apparent pain. OBJECTIVE: VITAL SIGNS: Blood pressure 122/62, heart rate 85, respiratory rate 21, and afebrile. LUNGS: Bilateral breath sounds. No wheezing. CARDIAC: Irregularly irregular rhythm. Normal S1, S2 with no new murmur. ABDOMEN: Soft and no apparent tenderness. G-tube site intact. EXTREMITIES: Contractures, but no edema. IMPRESSION: 1. Acute myocardial infarction, uncomplicated. 2. Acute on chronic renal failure, resolved. 3. Dehydration and , corrected. 4. Severe protein-calorie malnutrition, now on feedings. 5. Dysphagia, now status post G-tube. 6. Cerebrovascular disease with dementia. 7. Atrial fibrillation, chronic and rate controlled with no plan for anticoagulation in this clinical setting. PLAN: 1. Disposition, group home facility. 2. Discharge medications reviewed with primary care physician. Tigre Kay M.D. DR: PEDRO JOB#: [id number] CC:
--- NOTE | 2017-12-17 04:30 | Discharge Summary ---
DATE OF ADMISSION: 12/08/2017 DATE OF DISCHARGE: 12/16/2017 PERTINENT HISTORY: The patient is an 87-year-old man with dehydration and possible sepsis and unable to eat or drink. He has severe Alzheimer's disease, gastritis, decubitus ulcers, chronic obstructive pulmonary disease, and prior gastrointestinal bleed. PERTINENT PHYSICAL FINDINGS: GENERAL: The patient is lying in bed. HEENT: Bilateral ectropions. Oral mucosa dry. NECK: No adenopathy. LUNGS: Clear. HEART: Regular rhythm. ABDOMEN: Soft and nontender. EXTREMITIES: Show severe muscle wasting and degenerative changes in the knees. NEUROLOGIC: He is unresponsive. COURSE IN THE HOSPITAL: He presented with sodium 174, BUN 108, and creatinine 4.1, all of these came to normal with hydration. He was hydrated. He had elevated troponin and seen by Dr. Kay in Cardiology consultation. Initially, I had wished to make him hospice care, but the [facility] did not allow that because he had nobody to sign for him and the patient had no family. The patient was hydrated, received nasogastric feedings, and subsequently, a gastrostomy by Dr. Dallas. He spiked fevers and had atelectasis on chest x-ray, possible infiltrate and was treated for hospital-acquired pneumonia. On the day of discharge, he was unresponsive. Lungs clear. Heart, regular rhythm. He is in a position. He had 2+ to 3+ edema. Abdomen was soft. He was able to tolerate tube feeding and he was discharged to the ECF in stable condition. FINAL DIAGNOSES: 1. Failure to thrive. 2. Severe dehydration. 3. Acute kidney injury. 4. Edema secondary to severe hypoalbuminemia. 5. Aspiration pneumonia and atelectasis. 6. History of peptic ulcer disease. 7. History of decubitus ulcer right hip stage IV. 8. Alzheimer's. 9. Acute [id number] myocardial infarction. DISCHARGE DISPOSITION: To the ECF on tube feedings and medications per the discharge medication list. Khanh Haji M.D. DR: SHAYNE JOB#: [id number] CC:
== END 2017-12-16 20:00 | DRG 871 ==
LOC: EDBD 15:20 → EMR 16:12 → 4E 16:15 → EDBEDREQ 16:20
PROC: 0DH63UZ Insertion of Feeding Device into Stomach, Percutaneous Approach (ICD-10-PCS; principal; 2017-12-08)
DX: A41.9 Sepsis, unspecified organism (principal); E43 Unspecified severe protein-calorie malnutrition; I21.4 Non-ST elevation (NSTEMI) myocardial infarction; J69.0 Pneumonitis due to inhalation of food and vomit; N17.0 Acute kidney failure with tubular necrosis; N39.0 Urinary tract infection, site not specified; E87.0 Hyperosmolality and hypernatremia; M62.82 Rhabdomyolysis; Z68.1 Body mass index [BMI] 19.9 or less, adult; Z87.891 Personal history of nicotine dependence; E86.0 Dehydration; L89.209 Pressure ulcer of unspecified hip, unspecified stage; G30.9 Alzheimer's disease, unspecified; F02.80 Dementia in other diseases classified elsewhere, unspecified severity, without behavioral disturbance, psychotic disturbance, mood disturbance, and anxiety; M17.0 Bilateral primary osteoarthritis of knee; I25.10 Atherosclerotic heart disease of native coronary artery without angina pectoris; J44.9 Chronic obstructive pulmonary disease, unspecified; R62.7 Adult failure to thrive; F20.9 Schizophrenia, unspecified; E87.8 Other disorders of electrolyte and fluid balance, not elsewhere classified; R13.10 Dysphagia, unspecified; K26.9 Duodenal ulcer, unspecified as acute or chronic, without hemorrhage or perforation; K21.9 Gastro-esophageal reflux disease without esophagitis; K29.60 Other gastritis without bleeding; F09 Unspecified mental disorder due to known physiological condition; I48.91 Unspecified atrial fibrillation; Z66 Do not resuscitate
CPT/HCPCS: 36415; 71045; 74018; 80048; 80053; 81003; 82550; 82553; 83605; 83735; 84100; 84484; 85007; 85025; 85610; 85730; 86850; 86900; 86901; 87040; 87070; 87081; 87086; 87205; 93005; 93306; 94003; 94150; 99285